=== PATIENT | male | born 1965 | race Caucasian/White ===

== ENCOUNTER 2023-05-28 12:10 | Inpatient (IN) | payer BC, SELFPAY ==
[2023-05-28] VITALS (28 sets, daily range): BP systolic 86–195; BP diastolic 39–150; BMI 30.1
[2023-05-28 09:58] LABS: Glucose - Point of Care 118 mg/dl (70-99)
--- NOTE | 2023-05-28 09:58 | ED.GENMED ---
History of Present Illness
General
Chief Complaint: CODE
Source: ambulance crew
Exam Limitations: clinical condition
Time Seen by Provider: 05/28/23 09:56
History of Present Illness
History of Present Illness:
See MDM
Past History
Past History
ED Past Medical History: Other (unknown)
ED Past Surgical History: Other (unknown)
Social History
Tobacco: Other (unknown)
Alcohol: Other (unknown)
Phy Exam
Physical Exam
Physical Exam:
See MDM
Course
Orders/Labs/Results
Orders:
Orders
05/28/23 09:57
Electrocardiogram (*1) Urgent
Reason for Study: Shortness of Breath
CT Head W/o Iv Contrast Urgent
Comment:
Reason For Exam: altered, intubated
EKG- Treatment ONCE
CR Chest Portable - 1 View Urgent
Comment:
Reason For Exam: Resppiratory arrest, intubated
Reason Study Needs to be Portable: Patient Unstable
05/28/23 10:03
Ventilator Initial Settings [RESP] Urgent
Tidal Volume: 500
Rate: 16
FIO2: 100
PEEP: 5
05/28/23 10:04
Fentanyl, Urine Urgent
Lactic Acid Q4H
Comment: CANCEL 2nd LACTIC ACID IF 1st LACTIC ACID IS LESS THAN 2
PTT Urgent
Prothrombin Time Urgent
Troponin I Urgent
Urine Drug Abuse Screen Urgent
Date Specimen was Collected: 05/28/23
Time Specimen was Collected: 10:02
Blood Culture Q30M
TG Source: Blood/Venous
Specimen Description:
Ventilator Initial Settings [RESP] Stat
Tidal Volume: 500
Rate: 16
FIO2: 100
PEEP: 5
05/28/23 10:08
Dave [Dave Placement- Treatment] ONCE
Reason for insertion: Acute Retention
05/28/23 10:22
Add On- LAB Urgent
Tests Added?: acetaminophen level
05/28/23 10:30
Blood Culture Q30M
TG Source: Blood/Venous
Specimen Description:
05/28/23 10:33
ABG [Arterial Blood Gas] Urgent
%Oxygen/Room Air: 100%
05/28/23 10:38
NORepinephrine 4 MG/250 ML [Levophed] 4 mg in 250 ml IV NOW
Initial dose in mcg/min, then titrate:: 2
Titrate to keep:: MAP > 65 mmHg
Titrate by mcg/min:: 1-2 mcg/min
Frequency of titrations (minutes):: 5
Maximum dose in ICU in mcg/min:: 30
Maximum dose in IMU in mcg/min:: 8
Maximum dose in IVU in mcg/min:: 4
Begin to taper infusion when:: Remained at goal for 4hrs
Taper by mcg/min:: 1-2 mcg/min
Frequency of taper (minutes) if patient maintains goal:: 30
Taper to off?: Yes
If infusion off & no longer maintaining goal:: Contact Provider
05/28/23 10:39
NORepinephrine 4 MG/250 ML [Levophed] 4 mg in 250 ml .ROUTE .STK-MED
05/28/23 10:41
Urinalysis Reflex To Culture Urgent
Date Specimen was Collected: 05/28/23
Time Specimen was Collected: 10:31
Comment: USE THIS SPECIMEN FOR UA AND CULTURE
05/28/23 10:43
Acetaminophen Urgent
Comment: ADD ON
Complete Blood Count/With Diff Urgent
Comment: REDRAW WRONG TUBE COLLECTED
Comprehensive Metabolic Panel Urgent
Comment: REDRAW HEMOLYZED
Salicylate Routine
05/28/23 11:00
NORepinephrine 4 MG/250 ML [Levophed] 4 mg in 250 ml IV PER PROTOCOL
05/28/23 11:38
Cefepime HCl [Maxipime] 2,000 mg IV NOW STA
Vancomycin [Vancocin] 2,000 mg 0.9% Sodium Chloride 500 ml [Nss] 500 ml IV NOW
05/28/23 14:00
Lactic Acid Q4H
Comment: CANCEL 2nd LACTIC ACID IF 1st LACTIC ACID IS LESS THAN 2
Abnormal Lab Results
05/28/23 05/28/23 05/28/23
09:57 10:04 10:33
PT 21.5 H Sec
(11.4-14.6)
pH 7.07 L*
(7.35-7.45)
pCO2 66 H mmHg
(35-48)
pO2 56 L* mmHg
(83-108)
HCO3 19.1 L mmol/L
(21-28)
ABG O2 Sat (Measured) 86.6 L %
(94-98)
Lactic Acid 4.8 H* mmol/L
(0.7-2.0)
Troponin I 1.980 H* ng/ml
Ur Amphetamines Screen Positive H
(Negative)
U Benzodiazepines Scrn Positive H
(Negative)
U Marijuana (THC) Screen Positive H
(Negative)
POC Glucose 118 H mg/dl
(70-99)
Vital Signs
Initial and Last Documented VS:
Initial Vital Signs
Pulse Pulse Ox
69 98
05/28/23 09:55 05/28/23 09:55
Last Documented Vital Signs
Temp Pulse Resp BP Pulse Ox
94.5 F L 70 33 122/80 93
05/28/23 11:10 05/28/23 11:27 05/28/23 11:27 05/28/23 11:27 05/28/23 11:27
MDM/Problems Addressed
Differential Diagnosis Includes:
HPI and MDM Narrative:
57-year-old male presenting as a prearrival respiratory distress. Patient was found in his car unresponsive by bystanders. Police arrived and administered Narcan with no resolution. EMS arrived and patient required intubation. They provided
ketamine before intubation. EMS indicating patient appears hypothermic. His distal extremities are cold and mottled. It is not certain how long he has been in the car. They found an empty bottle of Xanax and a half empty bottle of Ambien. EMS
provided dextrose for hypoglycemia and placed IV and started IV fluids
On arrival, patient met by myself, nursing staff and respiratory therapy. Patient was placed on the ventilator. Patient has intermittent agonal breathing
Physical exam
General: Toxic appearing, intermittently taking breaths. Not following commands. Eyes remain open
HEENT: Not protecting airway. Pupils 3 mm bilaterally and minimally responsive
Neck: appears supple
CV: Distal extremities show signs of mottling. Decreased distal pulses throughout.
Resp: Lungs clear to bagging
Abd: Non-distended
Extremities: Distal extremity is cold mottled. No obvious deformities
Neuro: GCS 4
Psych: Flat affect
Skin: Cold
Problems Addressed including Acute and Chronic Conditions affecting care:
1. Altered mental status
Acuity: acute
Prognosis: unstable
Details: concerning this could be possible suicide attempt by drug overdose. Will continue on the monitor
2. Respiratory distress
Acuity: acute
Prognosis: unstable
Details: Patient intubated. Patient placed on ventilator. Will obtain ABG
3. Possible drug overdose
Acuity: acute
Prognosis: unstable
Details: ER pharmacy did call patient's pharmacy and confirmed that patient is on Xanax, Ambien, tramadol, losartan, and amphetamines. Patient already received Narcan x 2. Will continue symptomatic care
4. Pneumonia
Acuity: acute
Prognosis: unstable
Details: Chest x-ray concerning for left-sided pneumonia. Patient has penicillin allergy. Will start vancomycin and cefepime
5. [ ]
Acuity:
Prognosis:
Details:
Updates
10:15 AM no obvious intracranial hemorrhage on CT
10:35 AM after 2 L of IV fluids, patient remains hypotensive. Will start Levophed
Differential Diagnosis (but not limited to): Intracranial hemorrhage, purposeful drug overdose, stroke
Testing considered: CT neck but no evidence of trauma
Drug therapy (if applicable): OTC meds, please see d/c instruction regarding Rx drugs
Amount and/or Complexity of Data Reviewed
Clinical info obtained from: EMS
External data reviewed: N/A
Labs I independently reviewed (but not limited to): Elevated lactic acid
Radiology: The CT scan was personally and independently reviewed. In addition, official CT report reviewed.
X-ray independently reviewed: Left-sided pneumonia
Pulse Ox: hypoxic
EKG independently reviewed: Sinus rhythm, normal axis, no STEMI
Family Engagement Specialist: Sinus rhythm
Critical Care: The high probability of a clinically significant, sudden or life threatening deterioration of the cardiopulmonary system(s) required my full and direct attention, intervention and personal management. The aggregate critical care time
was 53 minutes. This time is in addition to time spent performing reported procedures but includes the following:
[x] Data Review and interpretation
[x] Patient assessment and monitoring of vital signs
[x] Documentation
[x] Medication orders and management
Risk of Complication:
Social Determinants of health: Good social support
Discussed with other providers: N/A
Escalation of Care includes Admit/Obs: After being observed in the Emergency Department, pt stable for discharge.
Occasional wrong word or 'sound a like' substitutions may have occurred due to the inherent limitations of voice recognition software. Read the chart carefully and recognize, using context, where substitutions have occurred.
*Critical Care Note
Total Time (30-74mins, 75-104mins- exclusive of procedures): 53 min
ED Attending Note
-
Portions of this chart may have been created with voice recognition software.� Occasional wrong word or��sound alike� substitutions may have occurred due to the inherent limitations of voice recognition software.
Discharge Plan
Departure
Patient Disposition: Admit
Date of Disposition: 05/28/23
Time of Disposition: 10:21
Admit to: ICU
Presentation/result/management discussed w/ accepting MD/DO: Hospitalist
Discharge Problem:
Acute respiratory distress, Hypothermia, Hypoxia, Overdose
Prescriptions:
No Action
alprazolam 1 mg Tablet
1 mg PO TID
losartan-hydrochlorothiazide 100-25 mg Tablet
1 tab PO DAILY
zolpidem 12.5 mg Tablet,Ext Release Multiphase
12.5 mg PO HS
tramadol 50 mg Tablet
50 mg PO Q4H PRN (Reason: pain)
amphetamine sulfate 20 mg Tablet,Disintegrating
20 mg PO DAILY
Discharge Date and Time
Print Language: SAMOAN
[2023-05-28 10:31] LABS: INR 1.89; PT 21.5 Sec (11.4-14.6)
[2023-05-28 10:32] LABS: APTT 29.3 Sec (23.4-35.0)
[2023-05-28 10:35] LABS: Lactic Acid 4.8 mmol/L (0.7-2.0)
[2023-05-28 10:45] LABS: Amphetamines Positive (Negative); Barbiturates Negative (Negative); Benzodiazepines Positive (Negative); Buprenorphine Negative (Negative); Cocaine Negative (Negative); Marijuana Positive (Negative); Methadone Negative (Negative); Methamphetamines Negative (Negative); Opiates Negative (Negative); Phencyclidine Negative (Negative); Tricyclic Antidepressants Negative (Negative)
[2023-05-28 10:47] LABS: B.E. -12.4 mmol/L; HCO3 19.1 mmol/L (21-28); O2 Saturation % 86.6 % (94-98); PCO2 66 mmHg (35-48)
[2023-05-28 10:55] LABS: pH 7.07 (7.35-7.45)
[2023-05-28 10:56] LABS: PO2 56 mmHg (83-108)
[2023-05-28 11:03] LABS: Urine Albumin Negative (Neg - Trace); Urine Bilirubin Negative (Negative); Urine Character Very Cloudy (Clear); Urine Color Yellow; Urine Glucose Negative (Negative); Urine Ketone Negative (Negative); Urine Leukocyte Negative (Negative); Urine Nitrite Negative (Negative); Urine Occult Blood Negative (Negative); Urine Urobilinogen Negative (Neg - 1+)
[2023-05-28 11:03] LABS: Fentanyl, Urine Negative (Negative)
--- NOTE | 2023-05-28 11:24 | HPS.HSE ---
Family Physician
-
Family Physician: NOT KNOW UNKNOWN - PT DOES
Chief Complaint
-
Found unresponsive
History of Present Illness
Patient is 57 years old male who was found by bystander unresponsive in the car.
On ambulance team arrival patient remained unresponsive. Two empty bottle of Xanax and a half empty bottle of Ambien found next to the patient.
No response to Narcan reported
Required intubation with ketamine on the field.
On arrival to the emergency room patient initially hypothermic and hypotensive. Later hypotensive with SBP in 80s after around 2 L of isotonic solution infused.
Remains on assist control ventilation with spontaneous breathing
Unresponsive to painful stimuli. Pupils sluggish at 3 mm bilaterally..
Medical History
Past Medical History
Past Medical History: Reports Other (Unable to obtain due to patient condition)
Past Surgical History: Reports Other (Unable to obtain due to patient condition)
Social History
Unable to obtain full social history at this time due to: Patient Intubation
Family History
Family History: Other (Unable to obtain due to patient condition)
Allergies / Home Medications
Allergies reflects when Allergies were last updated in [facility].
Home Medications with original date entered in [facility]
Allergy/Medication List:
Not available, pending information from the pharmacy.
Review of Systems
-
Unable to obtain full review of systems at this time due to: Patient Intubation
Physical Exam
Vital Signs
Vital Signs
Temp Pulse Resp BP Pulse Ox
94.5 F L 73 34 106/77 91
05/28/23 11:10 05/28/23 11:05 05/28/23 11:05 05/28/23 11:05 05/28/23 11:05
Physical Exam
General: Well Developed, Well Nourished and No Apparent Distress
HEENT: NormoCephalic, Moist mucous membranes, Atraumatic and Other (ET tube in place with clear secretions)
Respiratory: Rales and Rhonchi; No Wheezes
Cardiac: S1/S2 and Regular Rhythm; No Murmur or Rub
GI: Soft, Non Tender, Non Distended and Normal Bowel Sounds; No Organomegaly
Rectal: Deferred by Provider
Genito-urinary: Dave
Musculoskeletal: No Clubbing, No Cyanosis and No Edema
Skin: No Rash
Neuro: Other (Unresponsive, pupils sluggish at 3 mm bilaterally.)
Laboratory Results
-
Laboratory Results
PT 21.5 Sec (11.4-14.6) H 05/28/23 10:04
INR 1.89 05/28/23 10:04
APTT 29.3 Sec (23.4-35.0) 05/28/23 10:04
pH 7.07 (7.35-7.45) L* 05/28/23 10:33
pCO2 66 mmHg (35-48) H 05/28/23 10:33
pO2 56 mmHg (83-108) L* 05/28/23 10:33
HCO3 19.1 mmol/L (21-28) L 05/28/23 10:33
Lactic Acid 4.8 mmol/L (0.7-2.0) H* 05/28/23 10:04
Total Bilirubin Cancelled 05/28/23 10:04
AST Cancelled 05/28/23 10:04
ALT Cancelled 05/28/23 10:04
Alkaline Phosphatase Cancelled 05/28/23 10:04
Troponin I 1.980 ng/ml H* 05/28/23 10:04
Data Reviewed
-
Diagnostic Radiology: Image Personally Visualized and interpreted and Report Reviewed by me
CT Scan: Report Reviewed by me
Lab Data: Labs Reviewed by me
Impression/Plan
-
IMPRESSION:
Toxic metabolic encephalopathy secondary to overdose.
Ventilatory dependent respiratory failure
-Intubated on the field on 4/0
Concern for anoxic encephalopathy
Intentional overdose suspected benzodiazepines.
Severe shock with hypotension. Multifactorial secondary to hypovolemia and sepsis.
Type II [place] secondary to demand ischemia
Acute kidney injury
Hypothermia
Respiratory acidosis.
Lactic acidosis.
Aspiration pneumonia with bilateral infiltrates
Sepsis secondary to aspiration pneumonia
Suspected benzodiazepine abuse/dependence
PLAN:
Critically ill.
Admit to intensive care unit.
Toxic metabolic encephalopathy secondary to overdose.
Urine drug screen positive for benzodiazepines, amphetamines, marijuana. Serum Tylenol and salicylate level undetectable.
Unknown time of exposure.
On arrival to emergency room unresponsive while off any sedative medications after given ketamine for intubation in the field.
CT scan of the head with no evidence of cerebral edema on presentation.
Continue close neurologic monitoring.
May required additional sedation as well on the vent and being stabilized in terms of respiratory and hemodynamic status.
Serial neurologic evaluation
Follow-up brain imaging.
Ventilatory dependent respiratory failure secondary to overdose.
ABG consistent with respiratory acidosis with limited metabolic compensation
Continue assist-control ventilation
As needed sedation as per pen tester.
Follow-up ABG
Severe shock multifactorial due to hypovolemia, sedatives, suspect sepsis with aspiration pneumonia.
Received IV bolus of isotonic solution and remains hypotensive.
Start Levophed with titration to MAP 55-60.
Acute kidney injury.
Metabolic/lactic acidosis.
Unknown baseline renal function.
Dave catheter in place.
Monitor urine output and electrolytes.
Aspiration pneumonia
Chest x-ray with bilateral left greater than right infiltrates.
Blood cultures pending.
Broad-spectrum antibiotics: Vancomycin/cefepime pending sputum and blood cultures.
Adjust dose according to renal function
Type II [place] secondary to demand ischemia in the settings of profound hypotension.
Treat hypotension
Trend troponin
Consider echocardiogram.
Unknown psychiatric history, although given toxic drug screen suspect multisubstance abuse
DVT prophylaxis/heparin
Full code
Total Critical Care Time__60__ minutes. I was immediately available to the patient and staff. I personally examined, reviewed labs, diagnostic images/reports, interpretations, treatment plans, discussed patient care with other providers and
family or caregivers (if patient is unable to make decisions), entered orders as appropriate and documented the medical record.
[2023-05-28] MEDS: MAXIPIME 2000 MG IV (12:04)
[2023-05-28] MEDS: SUBLIMAZE 50 MCG IV ×3 (12:44→15:07)
[2023-05-28 12:45] LABS: Hematocrit 54.2 % (39.0-52.0); Hemoglobin 17.6 g/dL (13.0-18.0); Mean Corp Hgb Conc. 32.5 g/dL (33.0-37.0); Mean Corpuscular Hgb 33.1 pg (27.0-31.0); Mean Corpuscular Volume 101.9 fL (80.0-94.0); Mean Platelet Volume 11.2 fL (7.4-10.4); Nucleated Red Blood Cells % 0.2 % (-); Platelet Count 143 10^3/uL (130-400); Red Blood Cell Count 5.32 10^6/uL (4.70-6.10); Red Cell Dist. Width 12.8 % (11.5-14.5); White Blood Cell Count 8.7 10^3/uL (4.8-10.8)
[2023-05-28] MEDS: NSS 1000 IV ×2 (12:49→21:07)
[2023-05-28 12:58] LABS: Lactic Acid 3.9 mmol/L (0.7-2.0)
[2023-05-28 13:02] LABS: INR 1.86; PT 21.3 Sec (11.4-14.6)
[2023-05-28 13:06] LABS: Acetaminophen < 10 ug/ml (10-30); Albumin 3.7 g/dl (3.5-5.0); Alkaline Phosphatase 51 U/L (38-126); Blood Urea Nitrogen 35 mg/dl (9-20); Calcium 7.9 mg/dl (8.4-10.2); Carbon Dioxide 20 mmol/L (22-30); Chloride 109 mmol/L (98-107); Estimated Creatinine Clearance 37 ml/min; Glucose 119 mg/dl (70-99); Salicylate < 1.0 mg/dl (2.0-20.0); Sodium 139 mmol/L (135-145); Total Bilirubin 0.9 mg/dl (0.2-1.3); Total Protein 6.2 g/dl (6.3-8.2); eGFR 25.52
[2023-05-28] MEDS: VANCOCIN 540 MG IV (13:18)
--- NOTE | 2023-05-28 13:40 | PTCARENOTE ---
pt received from er- unresponsive- ett to vent- pt with noted posturing- Dr. Menon aware. #7.5 ett 25@lip- on 100% fio2, peep 5, rate 16 breathing in the 30s, tv 500. oral care provided. goodrich draining cloudy pink tinged urine. nsr with pvcs on
monitor. bp stable. pt with noted left elbow blister and right hip hematoma- soft to touch. pt with good pedal and radial pulses. mottled lower extremities- core temp 94.6- on leann hugger as per order. ivf started as per order. all safety
precautions in place. left ngt inserted- cxr ordered. auscultated and aspirated for placement as well. left pupil >right- no further orders per dr. beavers
--- NOTE | 2023-05-28 13:40 | CON.INTV ---
Consultation
Consultation Request
Date/Time Consultation Requested: 05/28/2023
Date/Time Consultation Performed: 05/28/2023
Requesting Provider: Dr. Reed
Performing Provider: Dr. Anjel Hammond
Reason for Consultation: Acute hypercapnic respiratory failure, drug overdose
Medical History
-
History of Present Illness:
57-year-old man who presented apparently with respiratory distress. Apparently he was found in his car by bystanders unresponsive. Patient was given Narcan on the scene without response. EMS intubated the patient on the field.
Ketamine was provided prior intubation.
Patient was hypothermic, hypotensive.
He was cold and mottled. No history, uncertain time of being in the car unresponsive. Bottles of Xanax and Ambien were found with him.
Upon arrival to the emergency room patient was tachypneic, was having some intermittent agonal breathing's, he was placed on the ventilator.
Chest x-ray demonstrated left lower lobe/upper lobe infiltrate.
Initial ABG with acute hypercapnic respiratory failure.
There is acute kidney injury with significantly abnormal liver function testing and positive troponins.
Past Medical History
Past Medical History: Other (Unavailable)
Social History
Tobacco: Other
Family History
Family History: Unable to Obtain
Allergies / Home Medications
Allergies
Allergy/AdvReac Type Severity Reaction Status Date / Time
penicillin G Allergy rash, hives Verified 05/28/23 09:59
Home Medications
�Medication �Instructions �Recorded �Confirmed �Last Taken �Type
alprazolam 1 mg tablet 1 mg PO TID 05/28/23 Unknown History
amphetamine sulfate 20 mg 20 mg PO DAILY 05/28/23 Unknown History
disintegrating tablet
losartan 100 1 tab PO DAILY 05/28/23 Unknown History
mg-hydrochlorothiazide 25 mg tablet
tramadol 50 mg tablet 50 mg PO Q4H PRN pain 05/28/23 Unknown History
zolpidem 12.5 mg tablet,extended 12.5 mg PO HS insomnia 05/28/23 Unknown History
release,multiphase
Review of Systems
-
Unable to Obtain full review of systems at this time due to: Patient Intubation
Vitals / Labs / Diagnostic Testing
Vital Signs
Temp Pulse Resp BP Pulse Ox
94.6 F L 72 32 125/94 90
05/28/23 13:00 05/28/23 12:45 05/28/23 12:45 05/28/23 12:45 05/28/23 13:02
Lab Data
05/28/23 12:35
05/28/23 12:35
Laboratory Results
05/28/23 05/28/23 05/28/23
10:04 10:33 12:39
PT 21.5 H 21.3 H
INR 1.89 1.86
APTT 29.3 31.0
pH 7.07 L*
pCO2 66 H
pO2 56 L*
HCO3 19.1 L
O2 Delivery Level
Diagnostic Testing:
Physical Exam
-
HEENT: Normocephalic
Cardiovascular: S1/S2 and Regular Rhythm
Respiratory: Clear and Non-Labored Respirations
GI: Soft and Non Distended
Neurology: Other (Unresponsive, pupils are equal, has a respiratory effort, tachypneic. Occasional moving lower extremities.)
Skin: Warm
General: Respiratory Distress
Assessment
-
Acute hypercapnic respiratory failure recurrent intubation on the field
ABG 7.0
Toxic metabolic encephalopathy: Suspected intentional drug overdose: Xanax/Ambien bottle found
Positive amphetamines/benzos/marijuana
Negative Tylenol and narcotics. Negative cocaine.
Cannot rule out ischemic injury: CT head negative reviewed
Possible aspiration pneumonia
Chest x-ray: Showed left sided infiltrate, reviewed
Non anion gap metabolic acidosis-with increased lactic acid
Lactic acid on admission 4.8
Increased troponin: Non-PA likely demand ischemia.
Shock: Hypovolemic/possibly septic given aspiration pneumonitis pneumonia
Abnormal LFTs probably shock liver-rule out rhabdo
Acute kidney injury possibly ATN
Assessment and plan:
Patient is critically ill, intubated on mechanical ventilation per
Does have respiratory effort, equal to pupils
No gag reflex.
Not following commands
Appears uncomfortable on mechanical ventilation
-
Cannot rule out anoxic brain injury
Current CT is negative
Will continue to minimize sedation as able
Continue supportive care
Avoid hypotension
Will consider repeating CT head tomorrow
Obtain EEG
Check amonia
-
Aspiration pneumonia suspect : Agree with broad-spectrum antibiotics
-
Mechanical ventilation settings reviewed: Continue with current settings
Will decrease FiO2 to maintain pulse ox above 90%
Repeat ABG and adjust as necessary based on acid-base status
-
Shock: norepinephrine to maintain mean arterial blood pressure above 65 mmHg.
Trend lactic acid
Follow renal function
-
Abnormal LFTs: Possibly shock liver
Obtain total CK to rule out rhabdomyolysis
-
Acute kidney injury possibly ATN
IV fluids with normal saline
Repeat labs later
Monitor electrolytes
-
Head of the bed elevation
NG tube placement
-
Increase troponin-possible non-PA.
EKG with sinus rhythm with sinus arrhythmia. No ST-T wave abnormalities
Obtain echocardiogram
Trend troponins
-
DVT prophylaxis with heparin
Protonix for GI prophylaxis
-
Critical care statement: A total of 42 minutes of critical care time was provided for this patient today. This includes management of unstable vital signs, evaluation of the patient at bedside, reviewing the patient's pertinent medical records
including ventilator settings, arterial blood gases, radiographs, microbiology, laboratory evaluations and discussion with primary team, critical care nursing, and respiratory therapy.
--- NOTE | 2023-05-28 13:41 | PTCARENOTE ---
Addendum entered by Melissa Burrell RN 05/28/23 14:52:
left pupil 3, right 2- sluggish
Original Note:
pt received from er- unresponsive- ett to vent- pt with noted posturing- Dr. Menon aware. #7.5 ett 25@lip- on 100% fio2, peep 5, rate 16 breathing in the 30s, tv 500. oral care provided. goodrich draining cloudy pink tinged urine. nsr with pvcs on
monitor. bp stable. pt with noted left elbow blister and right hip hematoma- soft to touch. pt with good pedal and radial pulses. mottled lower extremities- core temp 94.6- on leann hugger as per order. ivf started as per order. all safety
precautions in place. left ngt inserted- cxr ordered. auscultated and aspirated for placement as well.
[2023-05-28 13:45] LABS: Absolute Neutrophils -Man Diff 6.8 10^3/uL (1.4-6.5); Band Neutrophils 17 % (0-3); Segmented Neutrophils 62 % (42-75)
[2023-05-28 13:46] LABS: Lymphocytes 14 % (20-51); Metamyelocytes 3 % (-); Monocytes 3 % (2-9); Myelocytes 1 % (-); Normal RBC Morphology No; Platelets Checked YES
[2023-05-28 13:47] LABS: Total Cells Counted 100; Toxic Granulation Slight
[2023-05-28 13:53] LABS: ALT (SGPT) 5855 U/L (0-50); AST (SGOT) > 7500 U/L (17-59)
--- NOTE | 2023-05-28 14:10 | PHA.VAN.IN ---
Assessment
- Assessment
Renal Function: Unknown baseline (JESENIA)
Concomitant Antimicrobials: cefepime
AUC Dosing Plan
- Dosing Variables
Dosing Weight (kg): 106
- Empiric Dosing
Initial / Loading Dose: 2000 mg - 05/28/23 ~1200
Maintenance Regimen: dose by random level due to unknown renal function and SCR 2.8
Plan
- Plan
Maintenance Regimen: dose by random level
Monitoring: random 05/28 06
Pharmacokinetics Vancomycin I
- -
Patient Age: 57
Patient Sex: Male
Vancomycin Day #: 1
Indication: Pulmonary/Respiratory
Requesting Provider: Itzel
Height / Weight:
Height 6 ft
Actual Weight 106.2 kg
Pertinent Past Medical History: BMI ~32; no med hx available; pt found unresponsive
- Vital Signs / Lab Results
Temp Pulse Resp BP Pulse Ox
96.1 F L 72 32 125/94 90
05/28/23 14:00 05/28/23 12:45 05/28/23 12:45 05/28/23 12:45 05/28/23 13:02
Lab Results - Hematology
05/28/23 05/28/23
10:04 12:35
WBC Cancelled 8.7
Band Neutrophils 17 H
Lab Results - Chemistry
05/28/23 05/28/23
10:04 12:35
BUN Cancelled 35 H
Creatinine Cancelled 2.8 H
Estimated Creat Clear Cancelled 37
Albumin Cancelled 3.7
05/28/23 05/28/23
10:04 12:34
Lactic Acid 4.8 H* 3.9 H
Lab Results - Urine
05/28/23
10:41
Urine Nitrite (Reflex) Negative
Leukocyte Esterase Rfl Negative
[2023-05-28 14:19] LABS: HCO3 17.5 mmol/L (21-28); O2 Saturation % 93.6 % (94-98); PCO2 47 mmHg (35-48); PO2 66 mmHg (83-108)
[2023-05-28 14:20] LABS: pH 7.18 (7.35-7.45)
[2023-05-28 14:38] LABS: TSH 0.91 uIU/ml (0.47-4.68)
--- NOTE | 2023-05-28 14:52 | PTCARENOTE ---
family at bedside- updated by rn and Dr. Menon- eeg being completed at bedside. labs sent as per order. Dr. Menon aware of elevated diastolic pressures.
--- NOTE | 2023-05-28 14:57 | W.PN.UPDATE ---
Update Note
Progress Note Update
His and children came to the bedside.
Apparently patient has history of depression, hypertension, insomnia. Prior history of suicidal attempt.
History of daily alcohol use.
Last time seen well was Wednesday night. Had a discussion with the family and left the house.
Apparently has been undergoing a lot of stress at home.
He has lost about 20 to 30 pounds with lifestyle modifications in the last year, health was improving overall.
There is history of medical marijuana use.
[2023-05-28 15:00] LABS: Creatine Phosphokinase 11575 U/L (55-170)
[2023-05-28] MEDS: SUBLIMAZE 100 IV (15:05)
[2023-05-28] MEDS: HEPARIN 5000 UNITS SC (15:05)
--- NOTE | 2023-05-28 15:15 | EEG.RPT ---
Electroencephalogram Report
Recording
Done with Video Recording: Yes
Patient Status: Inpatient
Recording Conditions: Asleep
Hyperventilation Performed: No
Photic Stimulation Performed: Yes
Hand Dominance: Unknown
Report
LESS THAN 1 HOUR EEG REPORT
METHODS:
A 21 channel digitized electroencephalogram (EEG) was performed at the bedside. The 10/20 international system of electrode placement was used with ECG and lateral/vertical eye movements recorded. Study lasted 26 minutes.
QUALITY OF STUDY:
Poor, very limited due to muscle artifact
ELECTROENCEPHALOGRAPHER IMPRESSION(S):
Background
Difficult to discern with muscle artifact, in the occipital leads with less muscle artifact there is delta and possibly theta rhythms seen
There were no significant asymmetries of background activity noted.
Sleep
Drowsiness present throughout study
Photic Stimulation
Failed to activate the record.
ECG
Normal sinus rhythm
Abnormalities
Within the limits of the study (significant muscle artifact) there are no epileptiform discharges or seizures seen.
LESS THAN 1 HOUR EEG INTERPRETATION:
Study significantly limited due to muscle artifact, appears to be moderately abnormal EEG for age due to diffuse bihemispheric slowing of background rhythms.
CLINICAL CORRELATION:
This study was suggestive of diffuse cortical dysfunction without focal abnormality. No seizures were recorded.
Clinical correlation is advised.
[2023-05-28] MEDS: ATIVAN 2 MG IV (15:36)
[2023-05-28] MEDS: NSS (PRESERVATIVE FREE) 1 ML IV (15:37)
[2023-05-28 15:38] LABS: Lactic Acid 3.7 mmol/L (0.7-2.0)
[2023-05-28 16:42] LABS: Ammonia < 9 umol/L (9-30)
[2023-05-28] MEDS: TYLENOL ORAL SOLUTION 650 MG TUBE (17:55)
--- NOTE | 2023-05-28 18:01 | PTCARENOTE ---
temp 101.2- tylenol given as per order. pt respiratory rate improved after ordered ativan. breathing at 22- rate on vent set to 16. vss. all safety precautins in place.
--- NOTE | 2023-05-28 20:25 | PTCARENOTE ---
Assumed care of patient at 1900. Patient unresponsive. Pupils equal and reactive. Sluggish, 2mm. +Corneal and gag reflexes. NSR on tele monitor. Trace edema in b/l LE. Palpable pulses. #7.5 ett @ 25 cm. Tube repositioned to the left. Rec'd patient
on A/C 16550/5/80%. Weaned to 70% by RT. SPO2 94%. Hypo BS. No BM. NGT in left nare to low intermittent suction. Dave in place. Scant output (about 0-5 cc's an hour). Fentanyl and IVFs infusing. VSS. Patient febrile. Tylenol administered by day
shift RN. Full assessment and care as charted on worklist.
[2023-05-28 21:32] LABS: Lactic Acid 4.1 mmol/L (0.7-2.0)
--- NOTE | 2023-05-28 22:06 | PTCARENOTE ---
Patient remains febrile s/p PO Tylenol and ice packs. Core temp 102.6. Order for IV Ofirmev and cooling blanket obtained. SUPERVISOR [employer] also notified of critical lab results. Lactic 4.1 and Troponin 9.140. EKG - NSR.
[2023-05-28] MEDS: OFIRMEV 100 IV (22:43)
--- NOTE | 2023-05-28 23:07 | W.PN.UPDATE ---
Addendum entered and electronically signed by MARLEN Wiseman 05/29/23 06:54:
Hyperkalemia with K level 6.1, new orders placed of insulin 10 units, dextrose 50% 25 grams, Lokelma, calcium 1 gram and will repeat bmp.
Original Note:
Update Note
Progress Note Update
Troponin is trending up from 1.980 admission time ---> 2.730 and now is 9.140. Currently on heparin sc q 8hrs. Cardiology consult placed. New recommendations received/fishing instructor stone engraver to give one dose of aspirin 324 mg, start heparin gtt with
bolus/ acs protocol.
[2023-05-28] MEDS: LOW STRENGTH ASPIRIN 324 MG PO (23:25)
[2023-05-28] MEDS: STERILE WATER FOR INJECTION 10 ML IV (23:25)
[2023-05-28] MEDS: MAXIPIME 1000 MG IV (23:25)
--- NOTE | 2023-05-28 23:26 | PTCARENOTE ---
Cardiology consulted. Aspirin and Heparin gtt ordered.
[2023-05-28 23:37] LABS: Hematocrit 49.6 % (39.0-52.0); Mean Corp Hgb Conc. 34.3 g/dL (33.0-37.0); Mean Corpuscular Hgb 32.9 pg (27.0-31.0); Mean Corpuscular Volume 95.9 fL (80.0-94.0); Mean Platelet Volume 11.6 fL (7.4-10.4); Platelet Count 134 10^3/uL (130-400); Red Blood Cell Count 5.17 10^6/uL (4.70-6.10); White Blood Cell Count 4.8 10^3/uL (4.8-10.8)
[2023-05-29] VITALS (24 sets, daily range): BP systolic 89–121; BP diastolic 64–83; BMI 30.7
--- NOTE | 2023-05-29 00:14 | PTCARENOTE ---
Systems reviewed. Patient remains unresponsive. NSR on tele with rate in the 80-90's. FiO2 down to 60%. POX 94-95%.
[2023-05-29 00:31] LABS: APTT 29.3 Sec (23.4-35.0)
[2023-05-29] MEDS: HEPARIN 25000 UNITS/250 ML IV (01:08)
[2023-05-29] MEDS: HEPARIN 4000 UNITS IV (01:08)
[2023-05-29 01:24] LABS: Lactic Acid 3.6 mmol/L (0.7-2.0)
--- NOTE | 2023-05-29 01:45 | PTCARENOTE ---
Core temp 100.0. Cooling blanket off.
[2023-05-29 03:23] LABS: Hematocrit 48.3 % (39.0-52.0); Hemoglobin 16.6 g/dL (13.0-18.0); Mean Corp Hgb Conc. 34.4 g/dL (33.0-37.0); Mean Corpuscular Hgb 33.2 pg (27.0-31.0); Mean Corpuscular Volume 96.6 fL (80.0-94.0); Mean Platelet Volume 11.4 fL (7.4-10.4); Platelet Count 129 10^3/uL (130-400); White Blood Cell Count 5.7 10^3/uL (4.8-10.8)
[2023-05-29 03:44] LABS: Albumin 3.1 g/dl (3.5-5.0); Alkaline Phosphatase 45 U/L (38-126); Blood Urea Nitrogen 49 mg/dl (9-20); Calcium 7.5 mg/dl (8.4-10.2); Carbon Dioxide 19 mmol/L (22-30); Chloride 108 mmol/L (98-107); Estimated Creatinine Clearance 24 ml/min; Glucose 93 mg/dl (70-99); Potassium 6.1 mmol/L (3.5-5.1); Sodium 137 mmol/L (135-145); Total Bilirubin 0.8 mg/dl (0.2-1.3); Total Protein 5.3 g/dl (6.3-8.2); Vancomycin Random 14.6 ug/ml; eGFR 16.63
--- NOTE | 2023-05-29 03:57 | PTCARENOTE ---
Critical labs reported to PATIENT FINANCIAL SERVICES COORDINATOR. Troponin 12.100. Heparin gtt infusing as ordered, in addition to bolus administered. K 6.1. Calcium gluconate, Dextrose, Insulin and Lokelma ordered.
[2023-05-29 03:58] LABS: Absolute Neutrophils -Man Diff 3.9 10^3/uL (1.4-6.5); Band Neutrophils 43 % (0-3); Segmented Neutrophils 26 % (42-75)
[2023-05-29 03:59] LABS: Lymphocytes 11 % (20-51); Metamyelocytes 8 % (-); Monocytes 11 % (2-9); Myelocytes 1 % (-); Platelets Checked Yes
[2023-05-29 04:00] LABS: Normal RBC Morphology Yes; Total Cells Counted 100
[2023-05-29] MEDS: NOVOLIN R 10 UNITS IV ×2 (04:13→17:27)
[2023-05-29 04:15] LABS: ALT (SGPT) 4796 U/L (0-50); AST (SGOT) > 7500 U/L (17-59)
[2023-05-29] MEDS: DEXTROSE 50% SYRINGE 25 GRAMS IV ×2 (04:16→17:30)
[2023-05-29] MEDS: LOKELMA 10 GRAM PO ×2 (04:16→17:30)
[2023-05-29] MEDS: NSS 1000 IV ×2 (04:16→20:39)
[2023-05-29 04:26] LABS: Glucose - Point of Care 91 mg/dl (70-99)
[2023-05-29 04:48] LABS: B.E. -10.6 mmol/L; HCO3 17.2 mmol/L (21-28); O2 Saturation % 91.4 % (94-98); PCO2 44 mmHg (35-48); PO2 65 mmHg (83-108)
--- NOTE | 2023-05-29 05:08 | PTCARENOTE ---
FiO2 increased back to 80% by RT based off ABG results.
[2023-05-29] MEDS: CALCIUM GLUCONATE 100 IV (05:16)
[2023-05-29] MEDS: MIRALAX 17 GRAMS TUBE (07:15)
[2023-05-29] MEDS: PROTONIX IV 40 MG IV (07:16)
[2023-05-29] MEDS: NSS (PRESERVATIVE FREE) 10 ML IV (07:16)
[2023-05-29 07:30] LABS: APTT 36.9 Sec (23.4-35.0)
[2023-05-29 07:32] LABS: Lactic Acid 3.4 mmol/L (0.7-2.0)
[2023-05-29 07:59] LABS: Blood Urea Nitrogen 49 mg/dl (9-20); Calcium 6.9 mg/dl (8.4-10.2); Carbon Dioxide 16 mmol/L (22-30); Chloride 111 mmol/L (98-107); Estimated Creatinine Clearance 28 ml/min; Glucose 94 mg/dl (70-99); Potassium 5.6 mmol/L (3.5-5.1); Sodium 138 mmol/L (135-145); eGFR 17.69
--- NOTE | 2023-05-29 08:00 | PTCARENOTE ---
pt received by previous rn- remains unresponsive on vent- see settings as charted. pupils 2 and sluggish. no gag noted. nsr on monitor. oral care and goodrich care provided. turned and repositioned. goodrich with minimal urine output. labs sent. fentanyl
gtt, ivf and heparin gtt continue as per order. ngt to low intermittent suction. all safety precautions in place.
--- NOTE | 2023-05-29 08:05 | PTCARENOTE ---
pt received by previous rn- remains unresponsive on vent- see settings as charted. pupils equal and reactive. no gag noted. nsr on monitor. oral care and goodrich care provided. turned and repositioned. goodrich with minimal urine output. labs sent.
fentanyl gtt, ivf and heparin gtt continue as per order. ngt to low intermittent suction. all safety precautions in place.
[2023-05-29 08:43] LABS: Creatine Phosphokinase 14030 U/L (55-170)
[2023-05-29] MEDS: SODIUM BICARBONATE 50 MEQ IV (08:45)
--- NOTE | 2023-05-29 08:54 | CON.CAR ---
Consultation
Consultation Request
Date/Time Consultation Requested: 05/28/23
Date/Time Consultation Performed: 05/29/23
Requesting Provider: Claudia
Performing Provider: Bre
Reason for Consultation: troponin elevation
Medical History
-
Chief Complaint: found down
History of Present Illness:
57-year-old man who was found down in his car, intubated in the field and brought in by EMS. Initially hypotensive and hypothermic in [facility] emergency department and he was admitted to the ICU for further management. It seems that he had
history of prior suicide attempts and it was suspected that this was likely a suicide attempt. Initial labs showing multi organ dysfunction including acute kidney injury and acute liver injury as well as electrolyte abnormalities and lactic acidosis.
Cardiology is consulted for elevated troponin. Initial troponin of 1.99 which trended up to 12.1 overnight and peaked trending back down to 10.3 this AM. Twelve-lead ECGs was during this hospitalization did not show any acute ischemic changes.
Transthoracic echocardiogram from 05/28/2023 showed normal LV function and no obvious segmental wall motion abnormalities.
He remains intubated and sedated in the medical ICU and therefore is unable to provide any history. He is hemodynamically stable, not requiring pressor support at this time.
History obtained by chart review
PMHx:
HTN
depression
prior suicide attempt
Past Medical History
Past Medical History: Other (as above)
Past Surgical History: Other (as above)
Social History
Alcohol: Daily
Family History
Family History: Unable to Obtain
Allergies / Home Medications
Allergy/AdvReac Type Severity Reaction Status Date / Time
penicillin G Allergy rash, hives Verified 05/28/23 09:59
�Medication �Instructions �Recorded �Confirmed �Type
Ketamine Hcl 05/28/23 History
alprazolam 1 mg tablet 1 mg PO TID 05/28/23 History
dextroamphetamine-amphetamine ER 10 mg PO DAILY 05/28/23 History
10 mg 24hr capsule,extend release
(Adderall XR)
dextroamphetamine-amphetamine ER 20 mg PO DAILY 05/28/23 History
20 mg 24hr capsule,extend release
(Adderall XR)
latanoprost (PF) 0.005 % eye drops 1 drp BOTH EYES HS 05/28/23 History
in a dropperette
losartan 100 1 tab PO DAILY 05/28/23 History
mg-hydrochlorothiazide 25 mg tablet
sildenafil 100 mg tablet 100 mg PO DAILY PRN ED 05/28/23 History
timolol 0.5 % eye drops 1 drp BOTH EYES BID 05/28/23 History
tramadol 50 mg tablet 50 mg PO Q4H PRN pain 05/28/23 History
zolpidem 12.5 mg tablet,extended 12.5 mg PO HS insomnia 05/28/23 History
release,multiphase
Review of Systems
-
Unable to obtain full review of systems at this time due to: Patient Intubation
Physical Exam
Vital Signs
Temp Pulse Resp BP Pulse Ox
98.7 F 79 16 106/69 94
05/29/23 07:31 05/29/23 08:00 05/29/23 08:00 05/29/23 08:00 05/29/23 08:00
Lab Results
05/29/23 03:13
05/29/23 07:13
Troponin I 10.300 ng/ml H* 05/29/23 07:13
Physical Exam
General: Well Developed
HEENT: Normocephalic
Respiratory: Clear and Other (intubated)
Cardiac: S1/S2
GI: Soft
Musculoskeletal: No Edema
Skin: Warm and Dry
Neuro: Sedated
Psych: Calm
Impression / Plan
-
Assessment:
Troponin elevation - Type 2 MO
Respiratory failure with intubation in the field
Toxic metabolic encephalopathy: Suspected intentional drug overdose: Xanax/Ambien bottle found
Positive amphetamines/benzos/marijuana
Shock
Non anion gap metabolic acidosis-with increased lactic acidosis
Shock liver- ischemic hepatopathy
JESENIA
TTE 05/28/23: LVEF 50 to 55%, no segmental wall motion abnormalities, Normal RV size and function
Plan:
-Presenting with shock and multiorgan failure following suspected drug overdose
-We are consulted for elevated troponin which peaked at 12 overnight
-In the absence of EKG changes and segmental wall motion abnormalities on echo suspect that this is type II MO, nonischemic myocardial injury
-Stop aspirin and heparin drip. Risk of anticoagulation and antiplatelets likely outweighs the benefit given thrombocytopenia and shock liver and low suspicion for ACS.
-If he has neurology recovery we can arrange for ischemic evaluation in the future such as outpatient stress testing
We will sign off, please recall as needed
Data Reviewed
-
EKG: Tracing Personally Visualized and interpreted
Medical Tests (Nuc Med, Echo etc): Report Reviewed by me
Labs: Labs Reviewed by me
[2023-05-29] MEDS: SODIUM BICARBONATE 1075 MEQ IV (09:13)
--- NOTE | 2023-05-29 10:25 | PTCARENOTE ---
fentanyl infusion off per Dr. Hammond, heparin gtt discontinued. pt given amp of bicarb and started on gtt. plan of care discussed with mds and family at bedside. assessment unchanged.
--- NOTE | 2023-05-29 11:01 | W.PN.HOSP.TC ---
Today's Communication/Plan
-
Vent support
Wean off sedation and monitor for neurologic recovery
Neurology consultation
CT scan of the head
IV antibiotics
IV fluids
Levophed
Assessment / Plan
Assessment / Plan
IMPRESSION:
Toxic metabolic encephalopathy secondary to overdose.
Ventilatory dependent respiratory failure
-Intubated on the field on
Concern for anoxic encephalopathy
Intentional overdose suspected benzodiazepines.
Severe shock with hypotension. Multifactorial secondary to hypovolemia and sepsis.
Nonischemic cardiac injury.
Shock liver
Acute kidney injury
Hypothermia
Respiratory acidosis.
Lactic acidosis.
Aspiration pneumonia with bilateral infiltrates
Sepsis secondary to aspiration pneumonia
Suspected benzodiazepine abuse/dependence
Conditions prior to admission:
Depression with prior history of suicidal attempt
Essential hypertension
Insomnia
Obesity with reported weight loss due to lifestyle modification
PLAN:
Critically ill.
Admitted to intensive care unit.
Toxic metabolic encephalopathy secondary to overdose.
Urine drug screen positive for benzodiazepines, amphetamines, marijuana. Serum Tylenol and salicylate level undetectable.
Unknown time of exposure.
On arrival to emergency room unresponsive while off any sedative medications after given ketamine for intubation in the field.
CT scan of the head with no evidence of cerebral edema on presentation.
Neurologic exam with weak cough, no corneal reflexes. Spontaneous respirations while on the vent
Continue close neurologic monitoring.
Wean off fentanyl and monitor for neurologic recovery
EEG nondiagnostic
Repeat CT scan of the head
Neurology consultation
Ventilatory dependent respiratory failure secondary to overdose.
ABG consistent with respiratory acidosis with limited metabolic compensation
Continue assist-control ventilation
As needed sedation as per portal architect.
Follow-up ABG
Severe shock multifactorial due to hypovolemia, sedatives, suspect sepsis with aspiration pneumonia.
Received IV bolus of isotonic solution and remains hypotensive.
Continue isotonic solution
Continue Levophed with titration to MAP 55-60.
Acute kidney injury.
Metabolic/lactic acidosis.
Unknown baseline renal function.
Dave catheter in place.
Monitor urine output and electrolytes.
Aspiration pneumonia
Chest x-ray with bilateral left greater than right infiltrates.
Blood cultures pending.
Broad-spectrum antibiotics: Vancomycin/cefepime pending sputum and blood cultures.
Adjust dose according to renal function
Nonischemic cardiac injury
Troponin peak at 12
Echocardiogram with preserved biventricular function and no evidence of regional wall motion abnormalities
ECG with no ischemic changes
Cardiology input appreciated
Unknown psychiatric history, although given toxic drug screen suspect multisubstance abuse
DVT prophylaxis/heparin
Full code
Total Critical Care Time__60__ minutes. I was immediately available to the patient and staff. I personally examined, reviewed labs, diagnostic images/reports, interpretations, treatment plans, discussed patient care with other providers and
family or caregivers (if patient is unable to make decisions), entered orders as appropriate and documented the medical record.
Anticipated Discharge: > 48 hours
Subjective/Interval History
-
Date of Service: May 29, 2023
Objective Data
-
Labs:
Laboratory Results
05/28/23 05/28/23 05/29/23
23:31 23:54 03:13
WBC 4.8 5.7
Hgb 17.0 16.6
Hct 49.6 48.3
Plt Count 134 129 L
APTT Cancelled 29.3
HCO3
Sodium 137
Potassium 6.1 H*
Chloride 108 H
Carbon Dioxide 19 L
BUN 49 H
Creatinine 4.0 H
Glucose 93
Calcium 7.5 L
Total Bilirubin 0.8
AST > 7500 H*
ALT 4796 H*
Alkaline Phosphatase 45
05/29/23 05/29/23 05/29/23
04:39 07:13 15:45
WBC
Hgb
Hct
Plt Count
APTT 36.9 H Cancelled
HCO3 17.2 L
Sodium 138
Potassium 5.6 H
Chloride 111 H
Carbon Dioxide 16 L
BUN 49 H
Creatinine 3.8 H
Glucose 94
Calcium 6.9 L*
Total Bilirubin
AST
ALT
Alkaline Phosphatase
Vital Signs:
Vital Signs
Temp Pulse Resp BP Pulse Ox
98.7 F 83 16 107/75 94
05/29/23 07:31 05/29/23 10:00 05/29/23 10:00 05/29/23 10:00 05/29/23 10:22
I&O
05/28/23 05/29/23 05/30/23
06:59 06:59 06:59
Intake Total 3765 / 4230 830 / 830
Output Total 391 / 393
Balance 3374 / 3837 803 / 803
Physical Exam
-
General: Well Developed and No Apparent Distress
HEENT: Normocephalic, Atraumatic and Moist Mucous Membranes
Respiratory: Clear to Auscultation
Cardiac: Regular Rhythm and S1/S2; Negative Murmur, Rub or Gallop
GI: Soft, Nontender, Nondistended and Normal Bowel Sounds; Negative Organomegaly
Rectal: Deferred by Provider
Musculoskeletal: No Clubbing, No Cyanosis and No Edema
Skin: Negative Rash
Neuro: Other (Noted with spontaneous respiration, with no spontaneous movements, no response to noxious stimuli. Negative cough, negative corneal. Pupils sluggish.)
--- NOTE | 2023-05-29 11:14 | PHA.VAN.FU ---
Vancomycin Assessment / Plan
- Assessment
Renal Function: SCR Increasing (2.8->4.0->3.8)
WBC's are: WNL
In the past 24 hrs, patient has been: Febrile (MAX TEMP 102.4 05/27 2300)
Concomitant Antimicrobials: cefepime
- Assessment - Therapeutic Drug Monitoring
Random Level: 14.5 ( ~13 h after initial 2 gm LD)
- Dosing Plan
Continue: continue dose by random level
Dosing by Level: Hold off on dosing today (pt has low urine output- will hold off on dosing today)
- Monitoring Plan
Random Level: 05/29 06
- Follow Up
Pharmacy will continue to follow.
Vancomycin Follow UP
- -
Patient Age: 57
Patient Sex: Male
Vancomycin Day #: 2
Indication: Pulmonary/Respiratory
Requesting Provider: Itzel
Height / Weight:
Height 6 ft 2 in
Actual Weight 108.3 kg
Pertinent Past Medical History: BMI ~32; no med hx available; pt found unresponsive
- Vital Signs / Lab Results
Temp Pulse Resp BP Pulse Ox
98.7 F 83 16 107/75 94
05/29/23 07:31 05/29/23 10:00 05/29/23 10:00 05/29/23 10:00 05/29/23 10:22
Lab Results - Hematology
05/28/23 05/28/23 05/28/23
10:04 12:35 23:31
WBC Cancelled 8.7 4.8
Band Neutrophils 17 H
05/29/23
03:13
WBC 5.7
Band Neutrophils 43 H D
Lab Results - Chemistry
05/28/23 05/28/23 05/29/23
10:04 12:35 03:13
BUN Cancelled 35 H 49 H
Creatinine Cancelled 2.8 H 4.0 H
Estimated Creat Clear Cancelled 37 24
Albumin Cancelled 3.7 3.1 L
05/29/23
07:13
BUN 49 H
Creatinine 3.8 H
Estimated Creat Clear 28
Albumin
05/28/23 05/28/23 05/28/23
10:04 12:34 12:39
Lactic Acid 4.8 H* 3.9 H Cancelled
05/28/23 05/28/23 05/29/23
15:21 21:12 01:05
Lactic Acid 3.7 H 4.1 H* 3.6 H
05/29/23
07:13
Lactic Acid 3.4 H
Lab Results - Urine
05/28/23
10:41
Urine Nitrite (Reflex) Negative
Leukocyte Esterase Rfl Negative
Microbiology Results
05/28/23 10:04 Blood Culture - Preliminary
Blood/Venous No Growth in 24 hours- Final report to follow
Therapeutic Drug Monitoring
Random Vancomycin 14.6 ug/ml 05/29/23 03:13
[2023-05-29] MEDS: MAXIPIME 1000 MG IV (12:03)
[2023-05-29] MEDS: STERILE WATER FOR INJECTION 10 ML IV (12:03)
--- NOTE | 2023-05-29 12:09 | W.PN.INTV ---
Today's Communication / Plan
Recommendations
Bicarbonate drip
Will adjust mechanical ventilation
Repeat BMP later
Continue antibiotics
Discontinue sedation
Follow LFTs
Repeat CT head
Neurology consultation
Assessment
-
57-year-old man with history of depression, daily alcohol use, prior suicidal attempt 5 years ago per family found unresponsive in his car. Required emergent intubation. CT head without abnormality. Multiorgan failure noted.
Acute hypercapnic respiratory failure recurrent intubation on the field
ABG 7.0
Toxic metabolic encephalopathy: Suspected intentional drug overdose: Xanax/Ambien bottle found
Positive amphetamines/benzos/marijuana
Negative Tylenol and narcotics. Negative cocaine.
Cannot rule out ischemic injury: CT head negative reviewed
Possible aspiration pneumonia
Chest x-ray: Showed left sided infiltrate, reviewed
Non anion gap metabolic acidosis-with increased lactic acid
Lactic acid on admission 4.8
Increased troponin: Non-ME likely demand ischemia.
Shock: Hypovolemic/possibly septic given aspiration pneumonitis pneumonia
Abnormal LFTs probably shock liver-rule out rhabdo
Acute kidney injury possibly ATN
Hyperkalemia
Assessment and plan:
Remains critically ill, intubated, unresponsive, no meaningful neurological recovery.
Multiorgan failure, acute kidney injury, liver ischemic injury, hypotensive.
-
Suspect significant anoxic brain injury
Does have respiratory effort, equal to pupils
Minimal gag reflex.
Not following commands
Does not withdraw to pain
EEG without seizure activity suggestive of diffuse cortical dysfunction without focal abnormality. 05/28/2023
-
CT is negative
Discontinue all sedation and observe. He was on fentanyl drip overnight due to increased work of breathing.
Continue supportive care
Avoid hypotension
Repeat CT head
Neurology consulted, case discussed with Dr. Reed
-
Aspiration pneumonia suspect : cont. broad-spectrum antibiotics
-
Mechanical ventilation settings reviewed: Continue with current settings
AC 550/16/5/70%
Will decrease FiO2 to maintain pulse ox above 90%
ABG 05/29/2023: 7.22/44/65
Metabolic and respiratory acidosis
Tidal volume was adjusted.
-
Start bicarbonate drip-at 100 cc an hour
1 amp of bicarbonate was given
Repeat labs later, ABG and BMP at 3pm.
-
Shock: norepinephrine to maintain mean arterial blood pressure above 65 mmHg.
Levophed currently off.
Lactic acid 3.4, suspect mainly type II due to liver dysfunction.
Creatinine has plateaued
Continue Dave urinary output
-
Abnormal LFTs: P likely due to ischemic injury
Rhabdomyolysis CK 14,000
Continue IV fluids
-
Acute kidney injury possibly ATN
Bicarbonate
Hyperkalemia noted, status post insulin and Lokelma.
Bicarbonate drip
Repeat later
Hopefully can move bowels
Unable to diurese
-
Head of the bed elevation
NG tube placement-keep n.p.o. for now.
-
Increase troponin-possible non-ME.
Briefly on heparin drip, discontinue after discussion with cardiology
Echocardiogram: Discussed no regional motion wall abnormalities. Preserved LVEF
If improved neurologically ischemic evaluation in the future
-
DVT prophylaxis with heparin subcu
Protonix for GI prophylaxis
-
Dr. Hammond updated family 05/28/2023: Apparently patient has history of depression. Prior suicidal attempt 5 years ago. Drinks alcohol daily. Recently had lost some weight with lifestyle modifications. There is a lot of stress at home. The last
time he was seen well was on Wednesday night.
-
Critical care statement: A total of 35minutes of critical care time was provided for this patient today. This includes management of unstable vital signs, evaluation of the patient at bedside, reviewing the patient's pertinent medical records
including ventilator settings, arterial blood gases, radiographs, microbiology, laboratory evaluations and discussion with primary team, critical care nursing, and respiratory therapy.
Subjective Dataa
Subjective Data
Date of Service:
Date of Service: May 29, 2023
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
Subjective:
Unresponsive, on mechanical ventilation.
No meaningful neurological recovery
Review of Systems
General: Unobtainable - Pat Unresp
Objective Data
Data Reviewed
Vital Signs / I&O / Oxygen:
Vital Signs
Temp Pulse Resp BP Pulse Ox
99.8 F 83 16 107/75 94
05/29/23 11:20 05/29/23 10:00 05/29/23 10:00 05/29/23 10:00 05/29/23 10:22
Intake and Output
05/28/23 05/29/23 05/30/23
06:59 06:59 06:59
Intake Total 3765 / 4230 830 / 830
Output Total 391 / 393 27 / 27
Balance 3374 / 3837 803 / 803
SaO2 [A/C] 96
SaO2 94
Physical Exam
General: Respiratory Distress (n) and Comfortable
HEENT: Normocephalic and Other (ET tube in place)
Cardiovascular: S1-S2 and Regular Rhythm
Respiratory: Clear and Non-Labored Respirations
GI: Soft and Non Distended
Neurology: Other (Unresponsive, on mechanical ventilation. Pupils are equal, small and sluggish. Minimal gag reflex. Has respiratory effort. No response to pain)
Skin: Warm
Labs/Micro/Reports
Lab Data
05/29/23 03:13
05/29/23 07:13
Laboratory Results
05/28/23 05/28/23 05/28/23
12:39 14:09 23:31
PT 21.3 H
INR 1.86
APTT 31.0 Cancelled
pH 7.18 L*
pCO2 47
pO2 66 L
HCO3 17.5 L
O2 Delivery Level
05/28/23 05/29/23 05/29/23
23:54 04:39 07:13
PT
INR
APTT 29.3 36.9 H
pH 7.20 L
pCO2 44
pO2 65 L
HCO3 17.2 L
O2 Delivery Level
05/29/23
15:45
PT
INR
APTT Cancelled
pH
pCO2
pO2
HCO3
O2 Delivery Level
Microbiology
05/28/23 10:04 Blood/Venous Blood Culture - Preliminary
No Growth in 24 hours- Final report to follow
--- NOTE | 2023-05-29 13:09 | CON.NEURO ---
Neuro Assessment/Plan
Assessment
IMPRESSIONS/RECOMMENDATIONS:
Abrupt change in mental status
Most likely secondary to toxic metabolic encephalopathy. The possibility of anoxic injury is suggested by the presence of changes on CT of the head involving the globus pallidus bilaterally
Prior EEG evaluation failed to suggest discontinuous cortical rhythms which improved the likelihood of a meaningful recovery.
Better prognostic ability 3 days after discontinuance of all sedation.
Plan
Continue supportive care
Avoid sedative medications at this time
Must consider initiation of levetiracetam due to myoclonic movements patient is demonstrating and if same do not spontaneously resolve by the a.m., will initiate this medication
Recheck EEG if patient does not have spontaneous improvement of mentation after 24 hours off of sedative medications
Consider thiamine
Will continue to follow patient. Thank you.
Consultation
Order
Date of Consultation: 05/29/23
Requesting Provider: Hospitalists
Reason for Consult: Unresponsiveness
Subjective/Objective
Subjective Data
Date of Service: May 29, 2023
Patient presented to this hospital's emergency department 1 day ago after being found down in his car. The patient was described as hypotensive and hypothermic then placed in the intensive care unit. Patient's medical history is entirely obtained
after review of the patient's medical records and discussion with professional medical care providers. The patient reportedly had a history of suicidal attempts previously. The patient was intubated at the time of discovery. At the time of
presentation, the patient's urine drug screen was abnormal for amphetamines, benzodiazepines and marijuana.
Objective Data
Vital Signs
Temp Pulse Resp BP Pulse Ox
37.7 C 83 16 107/75 94
05/29/23 11:20 05/29/23 10:00 05/29/23 10:00 05/29/23 10:00 05/29/23 10:22
Lab Results
05/29/23 03:13
PT 21.3 Sec (11.4-14.6) H 05/28/23 12:39
INR 1.86 05/28/23 12:39
APTT Cancelled 05/29/23 15:45
Sodium 138 mmol/L (135-145) 05/29/23 07:13
Potassium 5.6 mmol/L (3.5-5.1) H 05/29/23 07:13
BUN 49 mg/dl (9-20) H 05/29/23 07:13
Glucose 94 mg/dl (70-99) 05/29/23 07:13
Calcium 6.9 mg/dl (8.4-10.2) L* 05/29/23 07:13
Ur Buprenorphine Negative (Negative) 05/28/23 10:04
Patient Allergies
penicillin G Allergy (Verified 05/28/23 09:59)
rash, hives
Physical Exam
-
General: No Apparent Distress, Intubated and Appears Stated Age
Eyes: Round OU and [place] Conjunctivae; Negative Able to visualize OU
HEENT: Anicteric and Moist Mucous Membranes
Neck: Full Range of Motion
Respiratory: No Dyspnea
Cardiac: No JVD
GI: Non-distended
Skin: Unremarkable
Extremities: No Clubbing, No Cyanosis and No Edema
Psych: Unable to Assess
Extended Neurological Exam
Mood & Affect: Unable to Assess
Attention Span & Concentration: Unresponsive to Verbal Stimuli and Unresponsive to Physical Stimuli; Negative Awake, Alert or Interactive
Memory: Unable to Assess
Tremor: Hand Tremor Absent and Head Tremor Absent
Involuntary Movement: Other (Rhythmic once every 2-second low amplitude head turned to the left in myoclonic fashion)
Speech: Mute
Cranial Nerve II: Left Eye: Unable to Assess Visual Viramontes; Negative Pupillary Size Unremarkable ([place])
Cranial Nerve II: Right Eye: Unable to Assess Visual Viramontes; Negative Pupillary Size Unremarkable (Pinpoint)
Cranial Nerves III, IV, : Extraocular Movement: Absent Doll's Eyes
Cranial Nerve VII: Facial Symmetry: Normal Facial Symmetry
Cranial Nerve VIII: Hearing: Unable to Assess
Cranial Nerves IX, X: Palate Movement: Unable to Assess
Cranial Nerve XI: Shoulder Shrug: Unable to Assess
Cranial Nerve XII: Tongue Protusion: Unable to Assess
Muscle Strength, Overall: Negative Spontaneously Moves
Muscle Bulk & Tone: Bulk Unremarkable and Tone Unremarkable
Pronator Drift: Unable to Assess
Deep Tendon Reflexes: Absent Throughout
Cold Sensation: Unable to Assess
Vibration Sensation: Unable to Assess
Touch Sensation: Negative Withdrawal to Pain
Coordination: Unable to Assess
Babinski Sign: Absent Bilaterally
Gait & Station: Unable to Assess
Data Reviewed
-
CT Head: Report Reviewed (Round 9 mm symmetric low attenuation lesions in the GLOBUS PALLIDUS BILATERALLY consistent with ANOXIC-ISCHEMIC ENCEPHALOPATHY. Diagnostic possibilities are (1) an ACUTE TOXIC ENCEPHALOPATHY (drug abuse) or (2) carbon
monoxide poisoning.)
Labs: Report Reviewed
Reviewed with: Physician and Nurse
Old Records: Summarized
Medications
-
Active Medications
Generic Name Dose Route Start Last Admin
Trade Name Freq PRN Reason Stop Dose Admin
Acetaminophen 650 mg 05/28/23 16:42 05/28/23 17:55
Acetaminophen (Oral Solution) 650 Mg/20.3 Ml Cup TUBE 06/25/23 16:41 650 mg
Q6HPRN PRN Administration
Fever >101 F
Cefepime HCl 1,000 mg 05/29/23 00:00 05/29/23 12:03
Cefepime Hcl 1,000 Mg/11.3 Ml Vial IV 1,000 mg
Q12H MADDIE Administration
Fentanyl Citrate 50 mcg 05/28/23 13:00 05/28/23 15:07
Fentanyl (50 Mcg/Ml) 100 Mcg/2 Ml Ampul IV 06/11/23 12:59 50 mcg
[id number] PRN Administration
see protocol
Protocol
Norepinephrine Bitartrate 4 mg in 250 mls @ 0 mls/hr 05/28/23 11:00
Levophed IV
PER PROTOCOL MADDIE
Protocol
Per Protocol
Fentanyl Citrate 1,000 mcg in 100 mls @ 0 mls/hr 05/28/23 13:00 05/28/23 15:05
Sublimaze IV 100 mls
PER PROTOCOL MADDIE Administration
Protocol
Per Protocol
Sodium Chloride 1,000 mls @ 150 mls/hr 05/28/23 12:37 05/29/23 04:16
Nss IV 1,000 mls
.Q6H40M MADDIE Administration
Vancomycin HCl 1 each/ Device 0 mls @ 0 mls/hr 05/28/23 12:37
IV
PER PROTOCOL MADDIE
Protocol
As Directed
Sodium Bicarbonate 75 meq/ 1,075 mls @ 100 mls/hr 05/29/23 10:00 05/29/23 09:13
Dextrose IV 05/29/23 20:44 1,075 mls
.[id number] MADDIE Administration
Lorazepam 2 mg 05/28/23 14:58 05/28/23 15:36
Lorazepam 2 Mg/Ml Vial IV 06/25/23 14:57 2 mg
Q4HPRN PRN Administration
vent dyssynchrony
Pantoprazole Sodium 40 mg 05/29/23 08:00 05/29/23 07:16
Protonix 40 Mg Iv Push IV 06/26/23 07:59 40 mg
DAILY MADDIE Administration
Polyethylene Glycol 17 grams 05/29/23 08:00 05/29/23 07:15
Polyethylene Glycol Powder 17 Grams Packet TUBE 06/26/23 07:59 17 grams
DAILY MADDIE Administration
Sodium Chloride 0 flush 05/28/23 15:00
Sodium Chloride 0.9% (Flush) Syringe IV 06/25/23 14:59
PER PROTOCOL MADDIE
Sodium Chloride 1 ml 05/28/23 14:58 05/28/23 15:37
Nss (Pf) 10 Ml Vial For Ativan 2 Mg Dose IV 06/25/23 14:57 1 ml
Q4HPRN PRN Administration
IV LORAZEPAM DILUTION
Sodium Chloride 10 ml 05/29/23 08:00 05/29/23 07:16
Sodium Chloride 0.9% (Preservative Free) 10 Ml Vial IV 06/26/23 07:59 10 ml
DAILY MADDIE Administration
Sterile Water 10 ml 05/29/23 00:00 05/29/23 12:03
Sterile Water For Injection 10 Ml Vial IV 06/26/23 00:00 10 ml
Q12H MADDIE Administration
Home Medications
�Medication �Instructions �Recorded
Ketamine Hcl 05/28/23
alprazolam 1 mg tablet 1 mg PO TID 05/28/23
dextroamphetamine-amphetamine ER 10 mg PO DAILY 05/28/23
10 mg 24hr capsule,extend release
(Adderall XR)
dextroamphetamine-amphetamine ER 20 mg PO DAILY 05/28/23
20 mg 24hr capsule,extend release
(Adderall XR)
latanoprost (PF) 0.005 % eye drops 1 drp BOTH EYES HS Eye Condition 05/28/23
in a dropperette
losartan 100 1 tab PO DAILY Blood Pressure 05/28/23
mg-hydrochlorothiazide 25 mg tablet
sildenafil 100 mg tablet 100 mg PO DAILYPRN PRN ED 05/28/23
timolol 0.5 % eye drops 1 drp BOTH EYES BID 05/28/23
tramadol 50 mg tablet 50 mg PO Q4H PRN pain 05/28/23
zolpidem 12.5 mg tablet,extended 12.5 mg PO HS insomnia 05/28/23
release,multiphase
Past History
Past History
ED Past Medical History: HTN, Psychiatric (Major depression with suicidal attempts) and Other (Aspiration pneumonia, shock with hypotension nonischemic cardiac injury); Negative Renal failure (Acute renal insufficiency)
ED Past Surgical History: Other (unknown)
Social History
Tobacco: Other (unknown)
Alcohol: Other (unknown)
[2023-05-29 14:58] LABS: B.E. -7.8 mmol/L; HCO3 19.7 mmol/L (21-28); O2 Saturation % 98.1 % (94-98); O2 Therapy 40; PCO2 46 mmHg (35-48); PO2 104 mmHg (83-108); pH 7.24 (7.35-7.45)
[2023-05-29 15:48] LABS: Blood Urea Nitrogen 58 mg/dl (9-20); Calcium 7.1 mg/dl (8.4-10.2); Carbon Dioxide 18 mmol/L (22-30); Chloride 110 mmol/L (98-107); Estimated Creatinine Clearance 24 ml/min; Glucose 102 mg/dl (70-99); Potassium 5.6 mmol/L (3.5-5.1); Sodium 135 mmol/L (135-145); eGFR 14.44
--- NOTE | 2023-05-29 15:59 | PTCARENOTE ---
Dr. Doyle at bedside- pt with pinpoint pupils, still remains unresponsive, pt with myclonic ticks. breathing with vent at this time. labs discussed with Dr. Hammond. turned and repositioned. oral care provided. remains with no gag.
--- NOTE | 2023-05-29 16:12 | CHAP ---
Mr. Kulkarni was unresponsive. I spoke softly at his side, offering words of comfort and reassurance, and a prayer.
--- NOTE | 2023-05-29 17:05 | W.PN.UPDATE ---
Update Note
Progress Note Update
Hyperkalemia still persistent
Will give additional D50 with insulin
Additional dose of Lokelma
Will increase respiratory rate on mechanical ventilation as the patient continues to be acidotic-mixed respiratory and metabolic.
Repeat BMP at 9 PM.
[2023-05-29] MEDS: NSS IV (18:36)
[2023-05-29] MEDS: TYLENOL ORAL SOLUTION 650 MG TUBE (20:39)
[2023-05-29 20:53] LABS: Glucose - Point of Care 98 mg/dl (70-99)
--- NOTE | 2023-05-29 21:00 | PTCARENOTE ---
Rec'd care of patient at 1900. Patient unresponsive. NSR on tele monitor. VSS. Remains ventilated. A/C 24/550/5/40%. Pulse ox 95-97%. See worklist for full assessment and care.
[2023-05-29 21:31] LABS: Blood Urea Nitrogen 66 mg/dl (9-20); Calcium 7.4 mg/dl (8.4-10.2); Carbon Dioxide 18 mmol/L (22-30); Chloride 106 mmol/L (98-107); Estimated Creatinine Clearance 22 ml/min; Glucose 108 mg/dl (70-99); Sodium 134 mmol/L (135-145); eGFR 13.36
[2023-05-30] VITALS (21 sets, daily range): BP systolic 96–127; BP diastolic 70–88; BMI 31.2
[2023-05-30] MEDS: MAXIPIME 1000 MG IV ×2 (00:16→11:44)
[2023-05-30] MEDS: STERILE WATER FOR INJECTION 10 ML IV ×2 (00:16→11:44)
--- NOTE | 2023-05-30 00:30 | PTCARENOTE ---
Assessment unchanged at 0000. VSS. Febrile. Cooling blanket on.
[2023-05-30 03:46] LABS: Hematocrit 41.5 % (39.0-52.0); Hemoglobin 14.7 g/dL (13.0-18.0); Mean Corp Hgb Conc. 35.4 g/dL (33.0-37.0); Red Blood Cell Count 4.46 10^6/uL (4.70-6.10); Red Cell Dist. Width 13.3 % (11.5-14.5); White Blood Cell Count 5.3 10^3/uL (4.8-10.8)
[2023-05-30] MEDS: NSS 1000 IV ×3 (03:59→22:40)
[2023-05-30 04:06] LABS: Albumin 2.6 g/dl (3.5-5.0); Alkaline Phosphatase 29 U/L (38-126); Blood Urea Nitrogen 71 mg/dl (9-20); Calcium 7.3 mg/dl (8.4-10.2); Carbon Dioxide 15 mmol/L (22-30); Chloride 110 mmol/L (98-107); Estimated Creatinine Clearance 21 ml/min; Glucose 97 mg/dl (70-99); Potassium 5.9 mmol/L (3.5-5.1); Sodium 134 mmol/L (135-145); Total Bilirubin 1.1 mg/dl (0.2-1.3); eGFR 12.43
--- NOTE | 2023-05-30 04:14 | PTCARENOTE ---
Systems reviewed. Chemosis noted bilaterally. All other assessments unchanged.
[2023-05-30 04:30] LABS: Vancomycin Random 11.6 ug/ml
[2023-05-30 04:52] LABS: ALT (SGPT) 3070 U/L (0-50); AST (SGOT) 2379 U/L (17-59)
[2023-05-30 05:29] LABS: Mean Platelet Volume 11.8 fL (7.4-10.4); Platelet Count 84 10^3/uL (130-400)
[2023-05-30 05:30] LABS: Absolute Neutrophils -Man Diff 3.4 10^3/uL (1.4-6.5); Band Neutrophils 47 % (0-3); Monocytes 6 % (2-9); Myelocytes 3 % (-); Segmented Neutrophils 19 % (42-75)
[2023-05-30 05:31] LABS: Lymphocytes 16 % (20-51); Metamyelocytes 9 % (-)
[2023-05-30 05:32] LABS: Platelets Checked Yes
[2023-05-30 05:35] LABS: Total Cells Counted 100; Toxic Granulation 2+
[2023-05-30 05:36] LABS: Normal RBC Morphology Yes; Vacuolated Segs 1+
[2023-05-30] MEDS: NSS (PRESERVATIVE FREE) 10 ML IV (07:14)
[2023-05-30] MEDS: MIRALAX 17 GRAMS TUBE (07:14)
[2023-05-30] MEDS: PROTONIX IV 40 MG IV (07:14)
--- NOTE | 2023-05-30 07:38 | PTCARENOTE ---
pt received from previous rn- ett to vent- see settings as charted. remains unresponsive, pupils 2 and sluggish. weak gag reflex. am care provided. turned and repositioned. nsr on monitor. left nare ngt with minimal output. all safety precautions
in place.
--- NOTE | 2023-05-30 08:58 | PHA.VAN.FU ---
Vancomycin Assessment / Plan
- Assessment
Renal Function: SCR Increasing (4.5->4.8->5.1)
WBC's are: WNL
In the past 24 hrs, patient has been: Febrile
Concomitant Antimicrobials: cefepime
- Assessment - Therapeutic Drug Monitoring
Random Level: 11.6 - after one 2000 mg load dose ~ 36 hrs ago
Calculated half life (H): baased on last 2 random levels - 78 h
- Dosing Plan
Continue: dosing by random level
Dosing by Level: Re-dose today (750 mg x 1 dose)
- Monitoring Plan
No level(s) ordered at this time: due to long half life - consider random level Wednesday
- Follow Up
Pharmacy will continue to follow.
Vancomycin Follow UP
- -
Patient Age: 57
Patient Sex: Male
Vancomycin Day #: 3
Indication: Pulmonary/Respiratory
Requesting Provider: Itzel
Height / Weight:
Height 6 ft 2 in
Actual Weight 110.1 kg
Pertinent Past Medical History: BMI ~32; no med hx available; pt found unresponsive
- Vital Signs / Lab Results
Temp Pulse Resp BP Pulse Ox
99.9 F 74 24 122/82 95
05/30/23 07:28 05/30/23 07:30 05/30/23 07:30 05/30/23 07:00 05/30/23 07:31
Lab Results - Hematology
05/28/23 05/28/23 05/28/23
10:04 12:35 23:31
WBC Cancelled 8.7 4.8
Band Neutrophils 17 H
05/29/23 05/30/23
03:13 03:32
WBC 5.7 5.3
Band Neutrophils 43 H D 47 H
Lab Results - Chemistry
05/28/23 05/28/23 05/29/23
10:04 12:35 03:13
BUN Cancelled 35 H 49 H
Creatinine Cancelled 2.8 H 4.0 H
Estimated Creat Clear Cancelled 37 24
Albumin Cancelled 3.7 3.1 L
05/29/23 05/29/23 05/29/23
07:13 15:14 20:48
BUN 49 H 58 H 66 H
Creatinine 3.8 H 4.5 H* 4.8 H*
Estimated Creat Clear 28 24 22
Albumin
05/30/23
03:32
BUN 71 H
Creatinine 5.1 H*
Estimated Creat Clear 21
Albumin 2.6 L
05/28/23 05/28/23 05/28/23
10:04 12:34 12:39
Lactic Acid 4.8 H* 3.9 H Cancelled
05/28/23 05/28/23 05/29/23
15:21 21:12 01:05
Lactic Acid 3.7 H 4.1 H* 3.6 H
05/29/23
07:13
Lactic Acid 3.4 H
Microbiology Results
05/28/23 12:39 MRSA Screen - Final
Nose No Methicillin Resistant Staphylococcus aureus isolated.
05/28/23 12:35 Blood Culture - Preliminary
Blood/Venous No Growth in 24 hours- Final report to follow
05/28/23 10:04 Blood Culture - Preliminary
Blood/Venous No Growth in 24 hours- Final report to follow
Therapeutic Drug Monitoring
Random Vancomycin 11.6 ug/ml 05/30/23 03:32
--- NOTE | 2023-05-30 09:04 | W.PN.NEURO.1 ---
Today's Communication / Plan
-
Continue supportive care
Avoid sedative medications at this time
Recheck EEG if patient does not have spontaneous improvement of mentation after discontinuance of sedative medications
Neuro Assessment/Plan
Assessment
IMPRESSIONS/RECOMMENDATIONS:
Abrupt change in mental status
Most likely secondary to toxic metabolic encephalopathy. The possibility of anoxic injury is suggested by the presence of changes on CT of the head involving the globus pallidus bilaterally
Prior EEG evaluation failed to suggest discontinuous cortical rhythms which improved the likelihood of a meaningful recovery.
Myoclonic movements have spontaneously discontinued.
Better prognostic ability 3 days after discontinuance of all sedation on May 31, 2023.
Plan
Continue supportive care
Avoid sedative medications at this time
Recheck EEG if patient does not have spontaneous improvement of mentation after discontinuance of sedative medications
Consider thiamine
Will continue to follow patient.
Subjective/Objective
Subjective Data
Date of Service: May 30, 2023
Patient not able to provide his own medical history.
Objective Data
Vital Signs
Temp Pulse Resp BP Pulse Ox
37.7 C 74 24 122/82 95
05/30/23 07:28 05/30/23 07:30 05/30/23 07:30 05/30/23 07:00 05/30/23 07:31
Lab Results
05/30/23 03:32
05/30/23 03:32
PT 21.3 Sec (11.4-14.6) H 05/28/23 12:39
INR 1.86 05/28/23 12:39
APTT Cancelled 05/29/23 15:45
Sodium 134 mmol/L (135-145) L 05/30/23 03:32
Potassium 5.9 mmol/L (3.5-5.1) H 05/30/23 03:32
BUN 71 mg/dl (9-20) H 05/30/23 03:32
Glucose 97 mg/dl (70-99) 05/30/23 03:32
Calcium 7.3 mg/dl (8.4-10.2) L 05/30/23 03:32
Ur Buprenorphine Negative (Negative) 05/28/23 10:04
Patient Allergies
penicillin G Allergy (Verified 05/28/23 09:59)
rash, hives
Review of Systems
-
Unable to obtain full review of systems at this time due to: Other (Unresponsiveness)
History Source: Patient
All other systems: Reviewed and negative
Physical Exam
-
General: No Apparent Distress, Intubated and Appears Stated Age
Eyes: Round OU and [place] Conjunctivae
HEENT: Anicteric and Moist Mucous Membranes
Neck: Full Range of Motion
Respiratory: No Dyspnea
Cardiac: No JVD
GI: Non-distended
Skin: Unremarkable
Extremities: No Clubbing, No Cyanosis and No Edema
Psych: Unable to Assess
Extended Neurological Exam
Mood & Affect: Unable to Assess
Attention Span & Concentration: Unresponsive to Verbal Stimuli and Unresponsive to Physical Stimuli; Negative Awake, Alert or Interactive
Memory: Unable to Assess
Tremor: Hand Tremor Absent and Head Tremor Absent
Involuntary Movement: None
Speech: Mute
Cranial Nerve II: Left Eye: Pupillary Size Unremarkable and Unable to Assess Visual Viramontes
Cranial Nerve II: Right Eye: Pupillary Size Unremarkable and Unable to Assess Visual Viramontes
Cranial Nerves III, IV, : Extraocular Movement: Negative Absent Doll's Eyes
Cranial Nerve V: Facial Sensation: Other (negative corneals bilaterally)
Cranial Nerve VII: Facial Symmetry: Normal Facial Symmetry
Cranial Nerve VIII: Hearing: Unable to Assess
Cranial Nerves IX, X: Palate Movement: Unable to Assess
Cranial Nerve XI: Shoulder Shrug: Unable to Assess
Cranial Nerve XII: Tongue Protusion: Unable to Assess
Muscle Strength, Overall: Negative Spontaneously Moves
Muscle Bulk & Tone: Bulk Unremarkable and Tone Unremarkable
Pronator Drift: Unable to Assess
Cold Sensation: Unable to Assess
Vibration Sensation: Unable to Assess
Touch Sensation: Negative Withdrawal to Pain
Coordination: Unable to Assess
Gait & Station: Unable to Assess
Data Reviewed
-
CT Head: Report Reviewed
Labs: Report Reviewed
Reviewed with: Nurse
Old Records: Summarized
Past History
Past History
ED Past Medical History: HTN, Psychiatric (Major depression with suicidal attempts) and Other (Aspiration pneumonia, shock with hypotension nonischemic cardiac injury); Negative Renal failure (Acute renal insufficiency)
ED Past Surgical History: Other (unknown)
Social History
Tobacco: Other (unknown)
Alcohol: Other (unknown)
Medications
-
Medications:
Generic Name Dose Route Start Last Admin
Trade Name Freq PRN Reason Stop Dose Admin
Acetaminophen 650 mg 05/28/23 16:42 05/29/23 20:39
Acetaminophen (Oral Solution) 650 Mg/20.3 Ml Cup TUBE 06/25/23 16:41 650 mg
Q6HPRN PRN Administration
Fever >101 F
Cefepime HCl 1,000 mg 05/29/23 00:00 05/30/23 00:16
Cefepime Hcl 1,000 Mg/11.3 Ml Vial IV 1,000 mg
Q12H MADDIE Administration
Fentanyl Citrate 50 mcg 05/28/23 13:00 05/28/23 15:07
Fentanyl (50 Mcg/Ml) 100 Mcg/2 Ml Ampul IV 06/11/23 12:59 50 mcg
[id number] PRN Administration
see protocol
Protocol
Vancomycin HCl 1 each/ Device 0 mls @ 0 mls/hr 05/28/23 12:37
IV
PER PROTOCOL MADDIE
Protocol
As Directed
Sodium Chloride 1,000 mls @ 150 mls/hr 05/30/23 02:30 05/30/23 03:59
Nss IV 1,000 mls
.Q6H40M MADDIE Administration
Lorazepam 2 mg 05/28/23 14:58 05/28/23 15:36
Lorazepam 2 Mg/Ml Vial IV 06/25/23 14:57 2 mg
Q4HPRN PRN Administration
vent dyssynchrony
Pantoprazole Sodium 40 mg 05/29/23 08:00 05/30/23 07:14
Protonix 40 Mg Iv Push IV 06/26/23 07:59 40 mg
DAILY MADDIE Administration
Polyethylene Glycol 17 grams 05/29/23 08:00 05/30/23 07:14
Polyethylene Glycol Powder 17 Grams Packet TUBE 06/26/23 07:59 17 grams
DAILY MADDIE Administration
Sodium Chloride 0 flush 05/28/23 15:00
Sodium Chloride 0.9% (Flush) Syringe IV 06/25/23 14:59
PER PROTOCOL MADDIE
Sodium Chloride 1 ml 05/28/23 14:58 05/28/23 15:37
Nss (Pf) 10 Ml Vial For Ativan 2 Mg Dose IV 06/25/23 14:57 1 ml
Q4HPRN PRN Administration
IV LORAZEPAM DILUTION
Sodium Chloride 10 ml 05/29/23 08:00 05/30/23 07:14
Sodium Chloride 0.9% (Preservative Free) 10 Ml Vial IV 06/26/23 07:59 10 ml
DAILY MADDIE Administration
Sterile Water 10 ml 05/29/23 00:00 05/30/23 00:16
Sterile Water For Injection 10 Ml Vial IV 06/26/23 00:00 10 ml
Q12H MADDIE Administration
[2023-05-30] MEDS: VANCOCIN 150 IV (09:33)
--- NOTE | 2023-05-30 11:09 | W.PN.HOSP.TC ---
Today's Communication/Plan
-
Continue vent support
IV fluids
Monitor for neurologic recovery.
Monitor urine output.
IV antibiotics covering aspiration pneumonia.
Assessment / Plan
Assessment / Plan
IMPRESSION:
Toxic metabolic encephalopathy secondary to overdose.
Ventilatory dependent respiratory failure
-Intubated on the field on
Concern for anoxic encephalopathy
Intentional overdose suspected benzodiazepines.
Severe shock with hypotension. Multifactorial secondary to hypovolemia and sepsis.
Nonischemic cardiac injury.
Shock liver
Acute kidney injury
Hypothermia
Respiratory acidosis.
Lactic acidosis.
Aspiration pneumonia with bilateral infiltrates
Sepsis secondary to aspiration pneumonia
Suspected benzodiazepine abuse/dependence
Conditions prior to admission:
Depression with prior history of suicidal attempt
Essential hypertension
Insomnia
Obesity with reported weight loss due to lifestyle modification
PLAN:
Critically ill.
Admitted to intensive care unit.
Toxic metabolic encephalopathy secondary to overdose.
Urine drug screen positive for benzodiazepines, amphetamines, marijuana. Serum Tylenol and salicylate level undetectable.
Unknown time of exposure.
On arrival to emergency room unresponsive while off any sedative medications after given ketamine for intubation in the field.
CT scan of the head with no evidence of cerebral edema on presentation.
Neurologic exam with weak cough, no corneal reflexes. Spontaneous respirations while on the vent
Continue close neurologic monitoring.
Wean off fentanyl and monitor for neurologic recovery
EEG nondiagnostic
Repeat CT scan of the head 05/28:Round 9 mm symmetric low attenuation lesions in the GLOBUS PALLIDUS BILATERALLY consistent with ANOXIC-ISCHEMIC ENCEPHALOPATHY. Diagnostic possibilities are (1) an ACUTE TOXIC ENCEPHALOPATHY (drug abuse) or (2) carbon
monoxide poisoning.
Neurology consultation appreciated
Ventilatory dependent respiratory failure secondary to overdose.
ABG consistent with respiratory acidosis with limited metabolic compensation
Continue assist-control ventilation
As needed sedation as per arcade game technician.
Follow-up ABG
Severe shock multifactorial due to hypovolemia, sedatives, suspect sepsis with aspiration pneumonia.
Received IV bolus of isotonic solution and remains hypotensive.
Continue isotonic solution
Continue Levophed with titration to MAP 55-60.
Acute kidney injury.
Metabolic/lactic acidosis.
Hyperkalemia
Dave catheter in place.
Creatinine continue to rise with minimal urine output
IV fluids with addition of bicarb for maintenance.
Follow temporize potassium level.
Nephrology consultation.
Aspiration pneumonia
Chest x-ray with bilateral left greater than right infiltrates.
Blood cultures pending.
Broad-spectrum antibiotics: Vancomycin/cefepime pending sputum and blood cultures.
Adjust dose according to renal function
Nonischemic cardiac injury
Troponin peak at 12
Echocardiogram with preserved biventricular function and no evidence of regional wall motion abnormalities
ECG with no ischemic changes
Cardiology input appreciated
Goals of care discussion with patient's family at the bedside. They understand significance of current situation in patient with clinical as well as radiologic signs of anoxic brain injury and multiorgan failure not limited to JESENIA with oliguria.
According to patient and family wishes, they would not pursue any aggressive means of life support including hemodialysis. They would like to continue further close monitoring to complete 72 hours of support and reassessment for possible neurologic
recovery.
They wish patient's CODE STATUS to be changed to DNR.
DVT prophylaxis/heparin
DNR
Total Critical Care Time__60__ minutes. I was immediately available to the patient and staff. I personally examined, reviewed labs, diagnostic images/reports, interpretations, treatment plans, discussed patient care with other providers and
family or caregivers (if patient is unable to make decisions), entered orders as appropriate and documented the medical record.
Anticipated Discharge: > 48 hours
Subjective/Interval History
-
Date of Service: May 30, 2023
Objective Data
-
Labs:
Laboratory Results
05/30/23
03:32
WBC 5.3
Hgb 14.7
Hct 41.5
Plt Count 84 L D
Sodium 134 L
Potassium 5.9 H
Chloride 110 H
Carbon Dioxide 15 L
BUN 71 H
Creatinine 5.1 H*
Glucose 97
Calcium 7.3 L
Total Bilirubin 1.1
AST 2379 H*
ALT 3070 H*
Alkaline Phosphatase 29 L
Vital Signs:
Vital Signs
Temp Pulse Resp BP Pulse Ox
99.8 F 74 24 111/78 96
05/30/23 10:48 05/30/23 11:00 05/30/23 11:00 05/30/23 11:00 05/30/23 09:00
I&O
05/29/23 05/30/23 05/31/23
06:59 06:59 06:59
Intake Total 3765 / 4230 3390 / 3490 650 / 650
Output Total 391 / 393 177 / 182 30 / 30
Balance 3374 / 3837 3213 / 3308 620 / 620
Physical Exam
-
General: Well Developed and No Apparent Distress
HEENT: Normocephalic, Atraumatic and Moist Mucous Membranes
Respiratory: Clear to Auscultation
Cardiac: Regular Rhythm and S1/S2; Negative Murmur, Rub or Gallop
GI: Soft, Nontender, Nondistended and Normal Bowel Sounds; Negative Organomegaly
Rectal: Deferred by Provider
Musculoskeletal: No Clubbing, No Cyanosis and No Edema
Skin: Negative Rash
Neuro: Other (No spontaneous movements)
--- NOTE | 2023-05-30 11:31 | W.PN.INTV ---
Today's Communication / Plan
Recommendations
Continue mechanical ventilation without change
Repeat ABG
Start bicarbonate drip
Follow renal function
Avoid nephrotoxins
Avoid sedation
Continue antibiotics
Keppra started
DNR status
Assessment
-
57-year-old man with history of depression, daily alcohol use, prior suicidal attempt 5 years ago per family found unresponsive in his car. Required emergent intubation. CT head without abnormality. Multiorgan failure noted.
Acute hypercapnic respiratory failure recurrent intubation on the field
ABG 7.0
Toxic metabolic encephalopathy: Suspected intentional drug overdose: Xanax/Ambien bottle found
Positive amphetamines/benzos/marijuana
Negative Tylenol and narcotics. Negative cocaine.
Cannot rule out ischemic injury: CT head negative reviewed
Possible aspiration pneumonia
Chest x-ray: Showed left sided infiltrate, reviewed
Non anion gap metabolic acidosis-with increased lactic acid
Lactic acid on admission 4.8
Increased troponin: Non-[place]J likely demand ischemia.
Shock: Hypovolemic/possibly septic given aspiration pneumonitis pneumonia
Abnormal LFTs probably shock liver-rule out rhabdo
Acute kidney injury possibly ATN
Hyperkalemia
Assessment and plan:
Remains critically ill, intubated, unresponsive, no meaningful neurological recovery.
Multiorgan failure, acute kidney injury, liver ischemic injury, hypotensive.
-
Suspect significant anoxic brain injury anoxic brain injury suspected.
CT head 05/29/2023: Consistent with changes from ischemic/anoxic injury.
Does have respiratory effort, equal to pupils
Minimal gag reflex.
Not following commands
Does not withdraw to pain
EEG without seizure activity suggestive of diffuse cortical dysfunction without focal abnormality. 05/28/2023
neurology following, Keppra started.
Continue supportive care for now, best predictor of any meaningful neurological recovery at 72 hours of any sedation which will be tomorrow.
-
Continue to hold any sedation. Initially received some fentanyl due to increased work of breathing.
Avoid hypotension
-
Aspiration pneumonia suspect : cont. broad-spectrum antibiotics
Chest x-ray: Left-sided infiltrate.
No leukocytosis
Fever curve improving
-
Mechanical ventilation settings reviewed: Continue with current settings
AC 550/16/5/70%
ABG 05/29/2023: 7.24/46/104
Metabolic and respiratory acidosis
Repeat ABG, will adjust ventilator as necessary
-
Discontinue normal saline
Start bicarbonate drip given metabolic acidosis and hyperkalemia
-
Shock: norepinephrine to maintain mean arterial blood pressure above 65 mmHg.
Levophed currently off.
Lactic acid 3.4, suspect mainly type II due to liver dysfunction.
Continue Dave urinary output
-
Abnormal LFTs: P likely due to ischemic injury
Rhabdomyolysis CK 14,000
Continue supportive care, IV fluids
-
Acute kidney injury possibly ATN
Hyperkalemia noted, status post multiple doses insulin and Lokelma.
Restart bicarbonate drip
Unfortunately, worsening renal function, urinary output and hyperkalemia.
Nephrology consulted, case discussed, limited options at this point.
Discussed with Dr. Reed who discussed with family at the bedside, they would not want dialysis per
Hopefully can move bowels
Unable to diurese
-
Head of the bed elevation
NG tube placement-keep n.p.o. for now.
-
Increase troponin-possible non-NJ.
Briefly on heparin drip, discontinue after discussion with cardiology
Echocardiogram: Discussed no regional motion wall abnormalities. Preserved LVEF
If improved neurologically ischemic evaluation in the future
-
DVT prophylaxis with heparin subcu
Protonix for GI prophylaxis
-
Dr. Hammond updated family 05/28/2023: Apparently patient has history of depression. Prior suicidal attempt 5 years ago. Drinks alcohol daily. Recently had lost some weight with lifestyle modifications. There is a lot of stress at home. The last
time he was seen well was on Wednesday night.
Discussed with Dr. Reed who discussed with the family, would not want any heroic intervention if patient is not fully recovering from the neurological status. They would not want tracheotomy or feeding tubes. Would not want prolonged
mechanical ventilation.
For now continue supportive care and reevaluate on a daily basis in the next 24 to 48 hours for possible recovery.
DNR status has been instituted
-
Critical care statement: A total of 32minutes of critical care time was provided for this patient today. This includes management of unstable vital signs, evaluation of the patient at bedside, reviewing the patient's pertinent medical records
including ventilator settings, arterial blood gases, radiographs, microbiology, laboratory evaluations and discussion with primary team, critical care nursing, and respiratory therapy.
Subjective Dataa
Subjective Data
Date of Service:
Date of Service: May 30, 2023
Chief Complaint: Medical Detailist Follow Up (Hypercapnic respiratory failure-drug overdose/suicidal attempt)
Subjective:
Unfortunately, no meaningful neurological recovery.
Remains on mechanical ventilation
Review of Systems
General: Unobtainable - Pat Unresp
Objective Data
Data Reviewed
Vital Signs / I&O / Oxygen:
Vital Signs
Temp Pulse Resp BP Pulse Ox
99.8 F 74 24 111/78 96
05/30/23 10:48 05/30/23 11:00 05/30/23 11:00 05/30/23 11:00 05/30/23 09:00
Intake and Output
05/29/23 05/30/23 05/31/23
06:59 06:59 06:59
Intake Total 3765 / 4230 3390 / 3490 650 / 650
Output Total 391 / 393 177 / 182 30 / 30
Balance 3374 / 3837 3213 / 3308 620 / 620
SaO2 [A/C] 95
SaO2 96
Physical Exam
General: Respiratory Distress (n) and Comfortable
HEENT: Normocephalic and Other (ET tube in place)
Cardiovascular: S1-S2 and Regular Rhythm
Respiratory: Clear, Non-Labored Respirations and ET Tube (No secretions or hemoptysis)
GI: Soft and Non Distended
Neurology: Other (Unresponsive, on mechanical ventilation. Pupils are equal, small and sluggish. Minimal gag reflex. Has respiratory effort. No response to pain)
Skin: Warm
Labs/Micro/Reports
Lab Data
05/30/23 03:32
05/30/23 03:32
Laboratory Results
05/29/23
14:50
pH 7.24 L
pCO2 46
pO2 104
HCO3 19.7 L
O2 Delivery Level 40
Microbiology
05/28/23 10:04 Blood/Venous Blood Culture - Preliminary
No Growth in 48 hours- Final report to follow
05/28/23 12:39 Nose MRSA Screen - Final
No Methicillin Resistant Staphylococcus aureus isolated.
05/28/23 12:35 Blood/Venous Blood Culture - Preliminary
No Growth in 24 hours- Final report to follow
[2023-05-30] MEDS: SODIUM BICARBONATE 1150 MEQ IV (12:03)
--- NOTE | 2023-05-30 12:13 | PTCARENOTE ---
family at bedside and updated. pt dnr. assessment unchanged.
[2023-05-30 13:02] LABS: B.E. -5.5 mmol/L; HCO3 18.2 mmol/L (21-28); O2 Saturation % 97.2 % (94-98); PCO2 30 mmHg (35-48); PO2 83 mmHg (83-108); pH 7.39 (7.35-7.45)
--- NOTE | 2023-05-30 13:53 | W.PN.UPDATE ---
Update Note
Progress Note Update
Dr. Hammond updated all family members in detail.
Likely patient sustained significant brain injury.
Unable to predict amount of disability.
Family is contemplating stopping all resuscitation efforts. Patient would not want to have any disability or be on mechanical ventilation.
For now maintain DNR.
Continue supportive care
They will be discussed further and let us know how aggressive to proceed.
--- NOTE | 2023-05-30 15:16 | CHAP ---
Mrs. Kulkarni expressed concern that insurance information had not been asked for. Connected her with agents' records clerk to help with that. Later, I was paged for the family, after med staff had spoken with them. Talked with [id number], who then
helped the family reach a conclusion. They will wait the 72 hours before withdrawing. This brought some peace. A prayer blanket was provided, and we prayed together, commending Rj to God. The family plans to return in the morning.
--- NOTE | 2023-05-30 15:29 | W.CON.NEPH ---
Medical History
-
History of Present Illness:
Patient is 57 years old male who has HTN and HLD was able to come off meds with losing wt in last few years, was found by bystander unresponsive in the car on 05/27. reportedly two empty bottle of Xanax and a half empty bottle of Ambien found next to
the patient. No response to Narcan reported
Required intubation on the field. On arrival to the emergency room patient initially hypothermic and hypotensive. On admit his cr noted at 2.8, (no previous baseline labs available to compare) and progressively increased to 5.1 today with decreased
UOP anuric now. He also has hyperkalemia with rhabdomyolysis 14k. he also elevated troponin. At this point CT head done on 05/28 shows anoxic injury changes in brain. neurology following. Pt currently with out sedation and not responsive. LFTs
significantly high. Further history is unable to obtain.
Past Medical History
HLD
Depression with prior history of suicidal attempt
Essential hypertension
Insomnia
Obesity with reported weight loss due to lifestyle modification
Social History
not available , pt intubated
Family History
not available, not intubated
Allergies / Home Medications
Allergy/AdvReac Type Severity Reaction Status Date / Time
penicillin G Allergy rash, hives Verified 05/28/23 09:59
�Medication �Instructions �Recorded �Confirmed �Type
Ketamine Hcl 05/28/23 History
alprazolam 1 mg tablet 1 mg PO TID 05/28/23 05/29/23 History
dextroamphetamine-amphetamine ER 10 mg PO DAILY 05/28/23 History
10 mg 24hr capsule,extend release
(Adderall XR)
dextroamphetamine-amphetamine ER 20 mg PO DAILY 05/28/23 05/29/23 History
20 mg 24hr capsule,extend release
(Adderall XR)
latanoprost (PF) 0.005 % eye drops 1 drp BOTH EYES HS Eye Condition 05/28/23 05/29/23 History
in a dropperette
losartan 100 1 tab PO DAILY Blood Pressure 05/28/23 05/29/23 History
mg-hydrochlorothiazide 25 mg tablet
sildenafil 100 mg tablet 100 mg PO DAILYPRN PRN ED 05/28/23 05/29/23 History
timolol 0.5 % eye drops 1 drp BOTH EYES BID 05/28/23 05/29/23 History
tramadol 50 mg tablet 50 mg PO Q4H PRN pain 05/28/23 History
zolpidem 12.5 mg tablet,extended 12.5 mg PO HS insomnia 05/28/23 05/29/23 History
release,multiphase
Review of Systems
-
Unable to obtain full review of systems at this time due to: Patient Intubation
Physical Exam
Vital Signs
Vital Signs
Temp Pulse Resp BP Pulse Ox
99.9 F 76 24 124/79 94
05/30/23 14:37 05/30/23 14:00 05/30/23 14:00 05/30/23 14:00 05/30/23 14:00
Lab Results
WBC 5.3 10^3/uL (4.8-10.8) 05/30/23 03:32
RBC 4.46 10^6/uL (4.70-6.10) L 05/30/23 03:32
Hgb 14.7 g/dL (13.0-18.0) 05/30/23 03:32
Hct 41.5 % (39.0-52.0) 05/30/23 03:32
Plt Count 84 10^3/uL (130-400) L D 05/30/23 03:32
Sodium 134 mmol/L (135-145) L 05/30/23 03:32
Potassium 5.9 mmol/L (3.5-5.1) H 05/30/23 03:32
Chloride 110 mmol/L (98-107) H 05/30/23 03:32
Carbon Dioxide 15 mmol/L (22-30) L 05/30/23 03:32
BUN 71 mg/dl (9-20) H 05/30/23 03:32
Creatinine 5.1 mg/dL (0.7-1.3) H* 05/30/23 03:32
eGFR 12.43 05/30/23 03:32
Glucose 97 mg/dl (70-99) 05/30/23 03:32
Calcium 7.3 mg/dl (8.4-10.2) L 05/30/23 03:32
Albumin 2.6 g/dl (3.5-5.0) L 05/30/23 03:32
46: CT head
IMPRESSION:
1. Round 9 mm symmetric low attenuation lesions in the GLOBUS PALLIDUS BILATERALLY consistent with ANOXIC-ISCHEMIC ENCEPHALOPATHY. Diagnostic possibilities are (1) an ACUTE TOXIC ENCEPHALOPATHY (drug abuse) or (2) carbon monoxide poisoning.
2. Mild white matter leukoaraiosis in the right frontal lobe.
3. Mild diffuse cerebral and cerebellar volume loss.
4/5: CXR
IMPRESSION:
There is airspace disease throughout the left lung. Early pneumonia is suspected.
Physical Exam
General: Other (unresponsive)
Respiratory: Clear and Other (intuabted)
Cardiac: S1/S2 and Regular Rate/Rhythm
Abdomen: Soft, Nontender and Nondistended
Musculoskeletal: No Edema
Skin: No Rash
Neuro: Other (unable ot assess )
Psych: Other (unable to assess)
Assessment/Plan
-
IMP:
JESENIA
Non gap metabolic acidosis
hyperkalemia
Toxic metabolic encephalopathy secondary to overdose.
Ventilatory dependent respiratory failure
Concern for anoxic encephalopathy
Intentional overdose suspected benzodiazepines.
Severe shock with hypotension
Nonischemic cardiac injury.
Shock liver
Hypothermia
Respiratory acidosis on admit
Lactic acidosis.
Aspiration pneumonia with bilateral infiltrates
Sepsis secondary to aspiration pneumonia
Thrombocytopenia
Suspected benzodiazepine abuse/dependence
Depression with prior history of suicidal attempt
Essential hypertension
Insomnia
Obesity with reported weight loss due to lifestyle modification
Plan:
A/w found unresponsive in car, OD
JESENIA-suspect ischemic ATN, bland UA, minimal UOP with goodrich
cr cont to peak , evolving hyperkalemia and met acidosis
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
noted that he has anoxic injury changes on CT head
cont IV bicarb fluids for met acidosis , lasix prn
family at bedside noted will likely withdraw care tomorrow
cont supportive care for now
d/w nursing
CC time spent 35min
--- NOTE | 2023-05-30 16:06 | PTCARENOTE ---
assessment of systems unchanged.
[2023-05-30 17:50] LABS: B.E. -4.4 mmol/L; PCO2 30 mmHg (35-48); PO2 187 mmHg (83-108); pH 7.41 (7.35-7.45)
[2023-05-30 17:55] LABS: Hematocrit 39.7 % (39.0-52.0); Hemoglobin 14.1 g/dL (13.0-18.0); Mean Corp Hgb Conc. 35.5 g/dL (33.0-37.0); Mean Corpuscular Hgb 32.6 pg (27.0-31.0); Mean Corpuscular Volume 91.9 fL (80.0-94.0); Mean Platelet Volume 11.4 fL (7.4-10.4); Nucleated Red Blood Cells % 0 % (-); Platelet Count 85 10^3/uL (130-400); Red Blood Cell Count 4.32 10^6/uL (4.70-6.10); Red Cell Dist. Width 13.2 % (11.5-14.5); White Blood Cell Count 7.7 10^3/uL (4.8-10.8)
[2023-05-30 17:58] LABS: Urine Albumin 1+ (Neg - Trace); Urine Bilirubin 1+ (Negative); Urine Character Clear (Clear); Urine Color Yellow; Urine Glucose 1+ (Negative); Urine Ketone 1+ (Negative); Urine Leukocyte Trace (Negative); Urine Nitrite Negative (Negative); Urine Occult Blood 4+ (Negative); Urine Specific Gravity 1.025 (<1.030); Urine Urobilinogen Negative (Neg - 1+)
[2023-05-30 18:04] LABS: APTT 31.7 Sec (23.4-35.0); INR 1.63; PT 19.1 Sec (11.4-14.6)
[2023-05-30 18:08] LABS: Albumin 2.5 g/dl (3.5-5.0); Alkaline Phosphatase 50 U/L (38-126); Amylase 38 U/L (30-110); Blood Urea Nitrogen 83 mg/dl (9-20); Calcium 7.6 mg/dl (8.4-10.2); Carbon Dioxide 17 mmol/L (22-30); Chloride 107 mmol/L (98-107); Direct Bilirubin 0.4 mg/dl (0.0-0.4); Estimated Creatinine Clearance 17 ml/min; GGTP 45 U/L (15-73); Glucose 107 mg/dl (70-99); LDH 571 U/L (120-246); Lipase 31 U/L (23-300); Potassium 4.7 mmol/L (3.5-5.1); Sodium 133 mmol/L (135-145); Total Bilirubin 0.9 mg/dl (0.2-1.3); Total Protein 4.7 g/dl (6.3-8.2); eGFR 9.64
[2023-05-30 18:14] LABS: AST (SGOT) 1145 U/L (17-59)
[2023-05-30 18:23] LABS: ALT (SGPT) 2386 U/L (0-50)
[2023-05-30 18:24] LABS: Band Neutrophils 49 % (0-3); Lymphocytes 7 % (20-51); Metamyelocytes 5 % (-); Monocytes 6 % (2-9)
[2023-05-30 18:24] LABS: Urine Amorphous Seen; Urine Bacteria Many (Negative); Urine White Cell 26-30 /HPF (0-5)
[2023-05-30 18:25] LABS: Absolute Neutrophils -Man Diff 5.7 10^3/uL (1.4-6.5); Myelocytes 7 % (-); Segmented Neutrophils 26 % (42-75)
[2023-05-30 18:26] LABS: Normal RBC Morphology Yes; Platelets Checked Yes; Toxic Granulation Slight
[2023-05-30 18:27] LABS: Total Cells Counted 100
--- NOTE | 2023-05-30 18:28 | PTCARENOTE ---
collaborated with Hima from [facility]- family agreed for organ procurement- anesthesia at bedside placing wes. all labs sent. discussed with Dr. Lewis and Estefanía Reynoso, IR consult placed.
--- NOTE | 2023-05-30 18:30 | W.PN.ANS.LIN ---
Anesthesia IV & A-Line Note
- IV/Arterial Line
Right Radial Arrow 20 (04/25)
IV Line Comments: Uneventful Procedure
Allens test completed pre-procedure: Yes
A-Line Comments: Sterile technique as per standard protocol, Uneventful procedure, Seldinger technique used, Biopatch applied
Funtioning A-line in situ: No
A-line in at:: 18:22
--- NOTE | 2023-05-30 20:30 | PTCARENOTE ---
Rec'd care of patient at 1900. Patient remains unresponsive on the vent. No sedation. NSR on tele monitor. VSS. GOL coordinator at bedside. Q4hr labs ordered. HD access placed by IRAD. Pending initiation of CRRT.
--- NOTE | 2023-05-30 20:47 | W.PN.UPDATE ---
Update Note
Progress Note Update
Pt will be starting on CRRT for organ donation
orders provided
[2023-05-30] MEDS: RFP-401 Hemodialysis Solution (K+ 4 mEq/L) 15000 ML CRRT-IRR (21:25)
[2023-05-30 22:09] LABS: Hematocrit 38.3 % (39.0-52.0); Hemoglobin 13.7 g/dL (13.0-18.0); Mean Corp Hgb Conc. 35.8 g/dL (33.0-37.0); Mean Corpuscular Hgb 32.8 pg (27.0-31.0); Mean Corpuscular Volume 91.6 fL (80.0-94.0); Mean Platelet Volume 11.3 fL (7.4-10.4); Platelet Count 84 10^3/uL (130-400); Red Blood Cell Count 4.18 10^6/uL (4.70-6.10); Red Cell Dist. Width 13.1 % (11.5-14.5); White Blood Cell Count 8.2 10^3/uL (4.8-10.8)
[2023-05-30 22:11] LABS: HCO3 18.8 mmol/L (21-28); O2 Saturation % 94.2 % (94-98); PCO2 31 mmHg (35-48); PO2 66 mmHg (83-108); pH 7.39 (7.35-7.45)
[2023-05-30 22:18] LABS: INR 1.53; PT 18.3 Sec (11.4-14.6)
[2023-05-30 22:19] LABS: APTT 31.1 Sec (23.4-35.0)
[2023-05-30 22:29] LABS: Albumin 2.4 g/dl (3.5-5.0); Alkaline Phosphatase 50 U/L (38-126); Amylase 39 U/L (30-110); Blood Urea Nitrogen 87 mg/dl (9-20); Calcium 7.6 mg/dl (8.4-10.2); Carbon Dioxide 18 mmol/L (22-30); Chloride 107 mmol/L (98-107); Direct Bilirubin 0.4 mg/dl (0.0-0.4); Estimated Creatinine Clearance 16 ml/min; GGTP 43 U/L (15-73); Glucose 111 mg/dl (70-99); LDH 539 U/L (120-246); Lipase 31 U/L (23-300); Potassium 4.5 mmol/L (3.5-5.1); Sodium 133 mmol/L (135-145); Total Bilirubin 0.9 mg/dl (0.2-1.3); Total Protein 4.5 g/dl (6.3-8.2); eGFR 8.96
--- NOTE | 2023-05-30 22:39 | PTCARENOTE ---
CRRT initiated. VSS.
[2023-05-30 22:40] LABS: ALT (SGPT) 2030 U/L (0-50); AST (SGOT) 855 U/L (17-59)
[2023-05-31] VITALS: BP 127/86
--- NOTE | 2023-05-31 00:04 | PTCARENOTE ---
HD catheter malfunctioning. Unable to get blood return from venous access. CRRT disconnected at 2340. MANAGER LAND at bedside. Orders pending.
[2023-05-31] MEDS: MAXIPIME 1000 MG IV ×2 (00:27→05:13)
[2023-05-31] MEDS: STERILE WATER FOR INJECTION 10 ML IV ×2 (00:27→05:14)
[2023-05-31] MEDS: CATHFLO/ACTIVASE 2 MG IV (00:47)
--- NOTE | 2023-05-31 00:47 | PTCARENOTE ---
PLASTICS BENCH MECHANIC at bedside infusing cathflo into HD cath. Will recheck in 30 minutes.
[2023-05-31 02:02] LABS: B.E. -4.4 mmol/L; HCO3 20.2 mmol/L (21-28); O2 Saturation % 98.5 % (94-98); PCO2 35 mmHg (35-48); PO2 120 mmHg (83-108); pH 7.37 (7.35-7.45)
[2023-05-31 02:06] LABS: Hematocrit 38.5 % (39.0-52.0); Hemoglobin 13.6 g/dL (13.0-18.0); Mean Corp Hgb Conc. 35.3 g/dL (33.0-37.0); Mean Corpuscular Hgb 32.5 pg (27.0-31.0); Mean Corpuscular Volume 92.1 fL (80.0-94.0); Mean Platelet Volume 11.2 fL (7.4-10.4); Platelet Count 73 10^3/uL (130-400); Red Blood Cell Count 4.18 10^6/uL (4.70-6.10); Red Cell Dist. Width 13.2 % (11.5-14.5); White Blood Cell Count 8.3 10^3/uL (4.8-10.8)
[2023-05-31 02:18] LABS: AST (SGOT) 706 U/L (17-59); Albumin 2.4 g/dl (3.5-5.0); Alkaline Phosphatase 53 U/L (38-126); Amylase 35 U/L (30-110); Blood Urea Nitrogen 89 mg/dl (9-20); Calcium 7.5 mg/dl (8.4-10.2); Carbon Dioxide 17 mmol/L (22-30); Chloride 108 mmol/L (98-107); Direct Bilirubin 0.4 mg/dl (0.0-0.4); Estimated Creatinine Clearance 16 ml/min; GGTP 43 U/L (15-73); Glucose 113 mg/dl (70-99); LDH 518 U/L (120-246); Lipase 30 U/L (23-300); Potassium 4.7 mmol/L (3.5-5.1); Sodium 135 mmol/L (135-145); Total Bilirubin 0.9 mg/dl (0.2-1.3); Total Protein 4.6 g/dl (6.3-8.2); eGFR 8.96
[2023-05-31 02:20] LABS: INR 1.63; PT 19.2 Sec (11.4-14.6)
--- NOTE | 2023-05-31 02:43 | PTCARENOTE ---
HD cath with blood return post infusion of cathflo. CRRT restarted at 0240.
[2023-05-31 02:51] LABS: ALT (SGPT) 1843 U/L (0-50)
--- NOTE | 2023-05-31 03:16 | PTCARENOTE ---
A-line briefly alarming for BP 180-190/100-110's. HR 70-80's. Patient reassessed- no changes. Pupils remain reactive. RR increased to 26-28. BP back down to 150-160's/80s. BULB INSPECTOR and GOL coordinator aware.
[2023-05-31 03:35] VITALS: BMI 31.9
[2023-05-31] MEDS: ATIVAN 2 MG IV ×3 (03:51→13:55)
[2023-05-31] MEDS: NSS (PRESERVATIVE FREE) 1 ML IV ×2 (03:51→13:56)
[2023-05-31 04:00] VITALS: BP 151/96
--- NOTE | 2023-05-31 04:16 | PTCARENOTE ---
Patient breathing irregularly. Dyssynchronous with the vent. 2mg IV Ativan administered. Vitals stable. CRRT maintained.
[2023-05-31 04:18] LABS: COVID-19 Antigen Negative (Negative)
[2023-05-31 05:42] LABS: Absolute Neutrophils -Man Diff 6.2 10^3/uL (1.4-6.5); Atypical Lymphocytes 1 %; Band Neutrophils 47 % (0-3); Lymphocytes 6 % (20-51); Metamyelocytes 7 % (-); Monocytes 6 % (2-9); Myelocytes 5 % (-); Normal RBC Morphology Yes; Platelets Checked Yes; Segmented Neutrophils 28 % (42-75); Total Cells Counted 100; Toxic Granulation 2+; Vacuolated Segs 1+
[2023-05-31 06:22] LABS: B.E. -5.9 mmol/L; HCO3 18.8 mmol/L (21-28); O2 Saturation % 98.7 % (94-98); PCO2 34 mmHg (35-48); PO2 139 mmHg (83-108); pH 7.35 (7.35-7.45)
[2023-05-31 06:24] LABS: Hematocrit 40.3 % (39.0-52.0); Hemoglobin 14.2 g/dL (13.0-18.0); Mean Corp Hgb Conc. 35.2 g/dL (33.0-37.0); Mean Corpuscular Hgb 32.7 pg (27.0-31.0); Mean Corpuscular Volume 92.9 fL (80.0-94.0); Mean Platelet Volume 11.6 fL (7.4-10.4); Nucleated Red Blood Cells % 0.3 % (-); Platelet Count 50 10^3/uL (130-400); Red Blood Cell Count 4.34 10^6/uL (4.70-6.10); Red Cell Dist. Width 13.2 % (11.5-14.5); White Blood Cell Count 7.8 10^3/uL (4.8-10.8)
[2023-05-31 06:35] LABS: INR 1.56; PT 18.5 Sec (11.4-14.6)
[2023-05-31 06:36] LABS: APTT 37.6 Sec (23.4-35.0)
[2023-05-31 06:50] LABS: AST (SGOT) 594 U/L (17-59); Albumin 2.5 g/dl (3.5-5.0); Alkaline Phosphatase 60 U/L (38-126); Amylase 35 U/L (30-110); Blood Urea Nitrogen 84 mg/dl (9-20); Calcium 7.8 mg/dl (8.4-10.2); Carbon Dioxide 18 mmol/L (22-30); Chloride 107 mmol/L (98-107); Direct Bilirubin 0.5 mg/dl (0.0-0.4); Estimated Creatinine Clearance 18 ml/min; GGTP 44 U/L (15-73); Glucose 111 mg/dl (70-99); LDH 578 U/L (120-246); Lipase 28 U/L (23-300); Potassium 4.7 mmol/L (3.5-5.1); Sodium 135 mmol/L (135-145); Total Bilirubin 1.1 mg/dl (0.2-1.3); Total Protein 4.7 g/dl (6.3-8.2); eGFR 10.02
[2023-05-31 07:00] LABS: ALT (SGPT) 1797 U/L (0-50)
--- NOTE | 2023-05-31 07:20 | W.PN.INTV ---
Today's Communication / Plan
Recommendations
Fentanyl, morphine, Ativan as needed for comfort/respiratory agitation
Await platelets
DNR status
Await withdrawal of care, organ procurement as indicated at request to family
Assessment
-
57-year-old man with history of depression, daily alcohol use, prior suicidal attempt 5 years ago per family found unresponsive in his car. Required emergent intubation. CT head without abnormality. Multiorgan failure noted.
Acute hypercapnic respiratory failure recurrent intubation on the field
ABG 7./
Toxic metabolic encephalopathy: Suspected intentional drug overdose: Xanax/Ambien bottle found
Positive amphetamines/benzos/marijuana
Negative Tylenol and narcotics. Negative cocaine.
Cannot rule out ischemic injury: CT head negative reviewed
Possible aspiration pneumonia
Chest x-ray: Showed left sided infiltrate, reviewed
Moderate left pleural effusion
Non anion gap metabolic acidosis-with increased lactic acid
Lactic acid on admission 4.8
Increased troponin: Non-[place] likely demand ischemia.
Shock: Hypovolemic/possibly septic given aspiration pneumonitis pneumonia
Labile blood pressure, hypertensive
Abnormal LFTs probably shock liver
Acute rhabdomyolysis, CK 14,000
Acute kidney injury possibly ATN
Hyperkalemia
Thrombocytopenia
Assessment and plan:
Remains critically ill, intubated, unresponsive, no meaningful neurological recovery.
Multiorgan failure, acute kidney injury, liver ischemic injury, hypotensive.
Suspect significant anoxic brain injury anoxic brain injury suspected.
CT head 05/29/2023: Consistent with changes from ischemic/anoxic injury.
Does have respiratory effort, equal to pupils
Minimal gag reflex.
Not following commands
Does not withdraw to pain
EEG without seizure activity suggestive of diffuse cortical dysfunction without focal abnormality. 05/28/2023
neurology following, Keppra started.
Family has decided to move forward towards organ donation, comfort, withdrawal of care
Moving forward
Continue with supportive care
Increased work of breathing noted, would start fentanyl as needed, try morphine as needed
Remains on cefepime therapy.
Okay to plan for pre-OR cefazolin. Reviewed with pharmacy
Mechanical ventilation settings reviewed: Continue with current settings
AC /8/80%
ABG 05/31/23: 7.35/34/139
Levophed currently off. Now hypertensive
Blood pressure improved with pain control, sedation
Lactic acid 3.4, suspect mainly type II due to liver dysfunction.
Continue Dave urinary output
Acute transaminitis
Rhabdomyolysis CK 14,000
Continue supportive care, IV fluids
Acute renal injury, ATN
Acute kidney injury possibly ATN
Did not tolerate CRRT yesterday due to clotting
Nephrology following
Unfortunately, worsening renal function, urinary output and hyperkalemia.
Nephrology consulted, case discussed, limited options at this point.
Discussed with Dr. Reed who discussed with family at the bedside, they would not want dialysis per
Hopefully can move bowels
Unable to diurese
May require heparin therapy due to clotting/CRRT.
Thrombocytopenia noted
Await platelets
Head of the bed elevation
NG tube placement-keep n.p.o. for now.
Increase troponin-possible non-UT.
Briefly on heparin drip, discontinue after discussion with cardiology
Echocardiogram: Discussed no regional motion wall abnormalities. Preserved LVEF
No plans for ischemia evaluation at this time
DVT prophylaxis: Sequential teds
Protonix for GI prophylaxis
Dr. Hammond updated family 05/28/2023: Apparently patient has history of depression. Prior suicidal attempt 5 years ago. Drinks alcohol daily. Recently had lost some weight with lifestyle modifications. There is a lot of stress at home. The last
time he was seen well was on Wednesday night.
Discussed with Dr. Reed who discussed with the family, would not want any heroic intervention if patient is not fully recovering from the neurological status. They would not want tracheotomy or feeding tubes. Would not want prolonged
mechanical ventilation.
For now continue supportive care and reevaluate on a daily basis in the next 24 to 48 hours for possible recovery.
DNR status noted
Plans for organ procurement, organ donation at request of family
To OR later today for withdrawal of care, comfort and organ procurement as indicated
Critical care statement: A total of 40 minutes of critical care time was provided for this patient today. This includes management of unstable vital signs, evaluation of the patient at bedside, reviewing the patient's pertinent medical records
including ventilator settings, arterial blood gases, radiographs, microbiology, laboratory evaluations and discussion with primary team, critical care nursing, and respiratory therapy.
Subjective Dataa
Subjective Data
Date of Service:
Date of Service: May 31, 2023
Chief Complaint: Drawer In Jacquard Loom Follow Up (Hypercapnic respiratory failure-drug overdose/suicidal attempt)
Subjective:
Patient remains a critically ill, not requiring pressors but does have episodic hypertension. Spontaneously breathing on assist-control with intermittent volume-cycled breaths. Patient remains unresponsive. Minimal secretions per respiratory care
but increase secretions overnight. Platelets decreased to 50. Awaiting possible organ procurement
Objective Data
Data Reviewed
Vital Signs / I&O / Oxygen:
Vital Signs
Temp Pulse Resp BP Pulse Ox
100.3 F 73 24 151/96 98
05/31/23 02:45 05/31/23 06:00 05/31/23 06:00 05/31/23 04:00 05/31/23 06:00
Intake and Output
05/30/23 05/31/23 06/01/23
06:59 06:59 06:59
Intake Total 3390 / 3490 2160.2 / 2160.2
Output Total 177 / 182 366 / 366
Balance 3213 / 3308 1794.2 / 1794.2
SaO2 [A/C] 94
SaO2 98
Physical Exam
General: Respiratory Distress (At times, respiratory distress noted)
HEENT: Normocephalic, Anicteric and Other (ET tube in place)
Cardiovascular: S1-S2, Regular Rhythm, Murmur (n), Rub (n) and Peripheral Edema (n)
Respiratory: Clear, Wheeze (n), Crackles (n), Rhonchi (Few left side), Accessory Resp Muscle Use (Mild), Stridor (n), Crepitus (n), ET Tube (No secretions or hemoptysis) and Other (Decreased breath sounds left side)
GI: Soft, Non Distended and Non Tender
Neurology: Other (Unresponsive, on mechanical ventilation. Pupils are equal, small and sluggish. Minimal gag reflex. Has respiratory effort. No response to pain)
Skin: Cyanosis (n), Jaundice (n), Other (Upper extremity A-line) and Other (Right IJ HD catheter)
Labs/Micro/Reports
Laboratory Results
05/30/23 05/30/23 05/30/23
12:56 17:44 21:59
PT 19.1 H 18.3 H
INR 1.63 1.53
APTT 31.7 31.1
pH 7.39 7.41 7.39
pCO2 30 L 30 L 31 L
pO2 83 187 H 66 L
HCO3 18.2 L 19.0 L 18.8 L
O2 Delivery Level
05/31/23 05/31/23
01:55 06:10
PT 19.2 H 18.5 H
INR 1.63 1.56
APTT 33.0 37.6 H
pH 7.37
pCO2 35
pO2 120 H
HCO3 20.2 L
O2 Delivery Level
Microbiology
05/28/23 12:35 Blood/Venous Blood Culture - Preliminary
No Growth in 48 hours- Final report to follow
05/28/23 10:04 Blood/Venous Blood Culture - Preliminary
No Growth in 48 hours- Final report to follow
05/28/23 12:39 Nose MRSA Screen - Final
No Methicillin Resistant Staphylococcus aureus isolated.
--- NOTE | 2023-05-31 07:28 | PTCARENOTE ---
Around 0640, CRRT cartridge clotted. Attempted to return blood. Venous access discovered to be clotted off again. Clots able to be removed and access flushed. Patient currently off CRRT. GOL coordinator and day shift RN aware.
[2023-05-31 07:45] LABS: Band Neutrophils 38 % (0-3); Segmented Neutrophils 52 % (42-75)
--- NOTE | 2023-05-31 07:45 | PTCARENOTE ---
Assumed care of patient. Pt rec'd unresponsive....right pupil 1/left pupil 2...both nonreactive. (+) gag noted intermittently w/ suctioning. Pt overbreathing the vent. No movements noted. S1 S2 reg w/ NSR on monitor. Weak PP. +1 generalized
anasarca. Knee hi SCD's on. #7.5 ETT 25cm right lip....current vent settings: 24/550/+8/90%...sats 95%. Lungs diminished especially throughout left chest...scattered coarse rhonchi throughout right chest. Suctioned via ETT for scant jimenez.
Abdomen round...hypo BS. Left nare [place] noted. Dave draining scant pernell urine. Blanchable red sacrum noted...q2h repositioning. Left elbow w/ open blister. RFA skin tear. Right hip hematoma noted. Right radial wes flushed and zeroed.
Multiple peripherals....NSS infusing @ 80ml/hr. RIJ HD cath capped....CRRT on hold due to clotting issues. GOL ok w/ not restarting CRRT for now. Will updated MD's. VS documented. Will continue to monitor closely.
[2023-05-31 07:46] LABS: Atypical Lymphocytes 1 %; Lymphocytes 3 % (20-51); Monocytes 6 % (2-9); Platelets Checked YES
[2023-05-31 07:47] LABS: Normal RBC Morphology Yes; Nucleated Red Blood Cells 1 (-); Total Cells Counted 100
[2023-05-31] MEDS: PROTONIX IV 40 MG IV (07:47)
[2023-05-31] MEDS: MIRALAX TUBE (07:47)
[2023-05-31] MEDS: NSS (PRESERVATIVE FREE) 10 ML IV (07:48)
[2023-05-31 08:00] VITALS: BP 154/101
--- NOTE | 2023-05-31 08:45 | PTCARENOTE ---
Spoke w/ ...discussed plan of care. is aware that CRRT is on hold per MARCO.
--- NOTE | 2023-05-31 08:45 | W.PN.UPDATE ---
Update Note
Progress Note Update
Spoke with bedside nurse
Patient is off CRRT at this time due to significant clotting overnight
spoke with [facility] who said okay to maintain off CRRT at this time until OR at 1PM
[2023-05-31 09:01] LABS: Glycohemoglobin (HgbA1c) 5.2 % (4.0-5.6)
--- NOTE | 2023-05-31 10:28 | CM ---
CM following re: discharge planning.
Discussed in Rounds, reviewed pt's chart, met with pt.
Pt is a 57 year old male, admitted with primary dx of Toxic metabolic encephalopathy secondary to overdose. Ventilatory dependent respiratory failure. Intubated on the field, remains intubated.
Per [facility] team, pt lives with spouse Carlie Hinton [phone] in a 2SH, 2 steps to enter, has 2 supportive sons and a daughter and pt was independent in all areas [employer], drove.
Pt was found unresponsive in his car, suspected intentional drug overdose: Xanax/Ambien bottle found, intubated on the field and was brought to . Per Rounds meeting, pt remains critically ill, intubated, unresponsive, no meaningful neurological
recovery. Multiorgan failure, acute kidney injury, liver ischemic injury, hypotensive.
Pt is an organ donor, GO team following.
D/C plan: comfort care with organ donation. GOC team following.
CM is available for emotional support.
[2023-05-31] MEDS: NSS 1000 IV (10:32)
--- NOTE | 2023-05-31 11:06 | W.PN.HOSP.TC ---
Today's Communication/Plan
-
Patient with anoxic encephalopathy secondary to overdose with multiple organ failure.
DNR.
Ongoing ventilatory support with organ donation evaluation.
Assessment / Plan
Assessment / Plan
IMPRESSION:
Toxic metabolic encephalopathy secondary to overdose.
Ventilatory dependent respiratory failure
-Intubated on the field on
Concern for anoxic encephalopathy
Intentional overdose suspected benzodiazepines.
Severe shock with hypotension. Multifactorial secondary to hypovolemia and sepsis.
Nonischemic cardiac injury.
Shock liver
Acute kidney injury
Hypothermia
Respiratory acidosis.
Lactic acidosis.
Aspiration pneumonia with bilateral infiltrates
Sepsis secondary to aspiration pneumonia
Suspected benzodiazepine abuse/dependence
Conditions prior to admission:
Depression with prior history of suicidal attempt
Essential hypertension
Insomnia
Obesity with reported weight loss due to lifestyle modification
PLAN:
Critically ill.
Admitted to intensive care unit.
Toxic metabolic encephalopathy secondary to overdose.
Urine drug screen positive for benzodiazepines, amphetamines, marijuana. Serum Tylenol and salicylate level undetectable.
Unknown time of exposure.
On arrival to emergency room unresponsive while off any sedative medications after given ketamine for intubation in the field.
CT scan of the head with no evidence of cerebral edema on presentation.
Neurologic exam with weak cough, no corneal reflexes. Spontaneous respirations while on the vent
Continue close neurologic monitoring.
Wean off fentanyl and monitor for neurologic recovery
EEG nondiagnostic
Repeat CT scan of the head 05/28:Round 9 mm symmetric low attenuation lesions in the GLOBUS PALLIDUS BILATERALLY consistent with ANOXIC-ISCHEMIC ENCEPHALOPATHY. Diagnostic possibilities are (1) an ACUTE TOXIC ENCEPHALOPATHY (drug abuse) or (2) carbon
monoxide poisoning.
Neurology consultation appreciated
Ventilatory dependent respiratory failure secondary to overdose.
ABG consistent with respiratory acidosis with limited metabolic compensation
Continue assist-control ventilation
As needed sedation as per respiratory therapy manager.
Follow-up ABG
Severe shock multifactorial due to hypovolemia, sedatives, suspect sepsis with aspiration pneumonia.
Received IV bolus of isotonic solution and remains hypotensive.
Continue isotonic solution
Continue Levophed with titration to MAP 55-60.
Acute kidney injury.
Metabolic/lactic acidosis.
Hyperkalemia
Dave catheter in place.
Creatinine continue to rise with minimal urine output
IV fluids with addition of bicarb for maintenance.
Follow temporize potassium level.
Nephrology consultation.
Aspiration pneumonia
Chest x-ray with bilateral left greater than right infiltrates.
Blood cultures pending.
Broad-spectrum antibiotics: Vancomycin/cefepime pending sputum and blood cultures.
Adjust dose according to renal function
Nonischemic cardiac injury
Troponin peak at 12
Echocardiogram with preserved biventricular function and no evidence of regional wall motion abnormalities
ECG with no ischemic changes
Cardiology input appreciated
Goals of care discussion with patient's family at the bedside. They understand significance of current situation in patient with clinical as well as radiologic signs of anoxic brain injury and multiorgan failure not limited to JESENIA with oliguria.
According to patient and family wishes, they would not pursue any aggressive means of life support including hemodialysis. They would like to continue further close monitoring to complete 72 hours of support and reassessment for possible neurologic
recovery.
They wish patient's CODE STATUS to be changed to DNR.
DVT prophylaxis/heparin
DNR
Total Critical Care Time__60__ minutes. I was immediately available to the patient and staff. I personally examined, reviewed labs, diagnostic images/reports, interpretations, treatment plans, discussed patient care with other providers and
family or caregivers (if patient is unable to make decisions), entered orders as appropriate and documented the medical record.
Anticipated Discharge: 24 - 48 hours
Subjective/Interval History
-
Date of Service: May 31, 2023
Objective Data
-
Labs:
Laboratory Results
05/31/23 05/31/23 05/31/23
01:55 04:00 06:00
WBC 8.3 Cancelled
Hgb 13.6 Cancelled
Hct 38.5 L Cancelled
Plt Count 73 L Cancelled
PT 19.2 H
INR 1.63
APTT 33.0
HCO3 20.2 L
Sodium 135 Pending
Potassium 4.7 Pending
Chloride 108 H Pending
Carbon Dioxide 17 L Pending
BUN 89 H Pending
Creatinine 6.7 H* Pending
Glucose 113 H Pending
Calcium 7.5 L Pending
Total Bilirubin 0.9 Pending
AST 706 H* Pending
ALT 1843 H* Pending
Alkaline Phosphatase 53 Pending
05/31/23 05/31/23 05/31/23
06:10 06:11 08:00
WBC 7.8 Pending
Hgb 14.2 Pending
Hct 40.3 Pending
Plt Count 50 L D Pending
PT 18.5 H Pending
INR 1.56 Pending
APTT 37.6 H Pending
HCO3 18.8 L Pending
Sodium 135 Pending
Potassium 4.7 Pending
Chloride 107 Pending
Carbon Dioxide 18 L Pending
BUN 84 H Pending
Creatinine 6.1 H* Pending
Glucose 111 H Pending
Calcium 7.8 L Pending
Total Bilirubin 1.1 Pending
AST 594 H* Pending
ALT 1797 H* Pending
Alkaline Phosphatase 60 Pending
05/31/23 05/31/23 05/31/23
12:00 16:00 20:00
WBC Pending Pending Pending
Hgb Pending Pending Pending
Hct Pending Pending Pending
Plt Count Pending Pending Pending
PT Pending Pending Pending
INR Pending Pending Pending
APTT Pending Pending Pending
HCO3 Pending Pending Pending
Sodium Pending Pending Pending
Potassium Pending Pending Pending
Chloride Pending Pending Pending
Carbon Dioxide Pending Pending Pending
BUN Pending Pending Pending
Creatinine Pending Pending Pending
Glucose Pending Pending Pending
Calcium Pending Pending Pending
Total Bilirubin Pending Pending Pending
AST Pending Pending Pending
ALT Pending Pending Pending
Alkaline Phosphatase Pending Pending Pending
Vital Signs:
Vital Signs
Temp Pulse Resp BP Pulse Ox
100.3 F 86 29 154/101 94
05/31/23 11:02 05/31/23 09:45 05/31/23 09:45 05/31/23 08:00 05/31/23 09:45
I&O
05/30/23 05/31/23 06/01/23
06:59 06:59 06:59
Intake Total 3390 / 3490 2160.2 / 2240.2 270 / 270
Output Total 177 / 182 366 / 371 15 / 15
Balance 3213 / 3308 1794.2 / 1869.2 255 / 255
Physical Exam
-
General: Well Developed and No Apparent Distress
HEENT: Normocephalic, Atraumatic and Moist Mucous Membranes
Respiratory: Clear to Auscultation
Cardiac: Regular Rhythm and S1/S2; Negative Murmur, Rub or Gallop
GI: Soft, Nontender, Nondistended and Normal Bowel Sounds; Negative Organomegaly
Rectal: Deferred by Provider
Musculoskeletal: No Clubbing, No Cyanosis and No Edema
Skin: Negative Rash
Neuro: Other (No spontaneous movements. Occasional spontaneous respirations.)
[2023-05-31] MEDS: SUBLIMAZE 100 MCG IV (11:40)
[2023-05-31 12:00] VITALS: BP 175/108
--- NOTE | 2023-05-31 12:00 | PTCARENOTE ---
Pt remains intubated....multiple labs sent per MD orders and GOL request. Skin evaluated by MARCO. Pt hypertensive and tachypneic after repositioning. Orthopnea noted. made aware. PRN meds given. Will continue to monitor.
[2023-05-31 12:10] LABS: B.E. -6.1 mmol/L; HCO3 18.9 mmol/L (21-28); O2 Saturation % 98.6 % (94-98); PCO2 35 mmHg (35-48); PO2 127 mmHg (83-108); pH 7.34 (7.35-7.45)
[2023-05-31 12:12] LABS: Urine Albumin 2+ (Neg - Trace); Urine Bilirubin 1+ (Negative); Urine Character Clear (Clear); Urine Color Amber; Urine Glucose 1+ (Negative); Urine Ketone 1+ (Negative); Urine Leukocyte 1+ (Negative); Urine Nitrite Negative (Negative); Urine Occult Blood 4+ (Negative); Urine Urobilinogen Negative (Neg - 1+)
[2023-05-31 12:15] LABS: Hematocrit 42.1 % (39.0-52.0); Hemoglobin 14.4 g/dL (13.0-18.0); Mean Corp Hgb Conc. 34.2 g/dL (33.0-37.0); Mean Corpuscular Hgb 32.4 pg (27.0-31.0); Mean Corpuscular Volume 94.6 fL (80.0-94.0); Mean Platelet Volume 11.8 fL (7.4-10.4); Platelet Count 62 10^3/uL (130-400); Red Blood Cell Count 4.45 10^6/uL (4.70-6.10); Red Cell Dist. Width 12.9 % (11.5-14.5)
[2023-05-31 12:21] LABS: Urine Squamous Cell 0-2 /LPF (Few)
[2023-05-31 12:22] LABS: Urine Bacteria Moderate (Negative)
[2023-05-31] MEDS: MORPHINE SULFATE 2 MG IV (12:23)
[2023-05-31 12:24] LABS: INR 1.62; PT 19.1 Sec (11.4-14.6)
[2023-05-31 12:25] LABS: APTT 35.2 Sec (23.4-35.0)
[2023-05-31 12:30] LABS: AST (SGOT) 428 U/L (17-59); Albumin 2.6 g/dl (3.5-5.0); Alkaline Phosphatase 56 U/L (38-126); Blood Urea Nitrogen 91 mg/dl (9-20); Carbon Dioxide 18 mmol/L (22-30); Chloride 104 mmol/L (98-107); Direct Bilirubin 0.6 mg/dl (0.0-0.4); Estimated Creatinine Clearance 16 ml/min; Glucose 112 mg/dl (70-99); Sodium 137 mmol/L (135-145); Total Bilirubin 1.1 mg/dl (0.2-1.3); Total Protein 4.8 g/dl (6.3-8.2)
[2023-05-31 12:39] LABS: ALT (SGPT) 1581 U/L (0-50)
[2023-05-31 12:50] LABS: Amylase 36 U/L (30-110); GGTP 43 U/L (15-73); LDH 562 U/L (120-246); Lipase 27 U/L (23-300); Potassium 4.8 mmol/L (3.5-5.1)
[2023-05-31 13:01] LABS: Absolute Neutrophils -Man Diff 6.8 10^3/uL (1.4-6.5); Band Neutrophils 15 % (0-3); Lymphocytes 8 % (20-51); Monocytes 7 % (2-9); Normal RBC Morphology Yes; Platelets Checked Yes; Segmented Neutrophils 70 % (42-75); Total Cells Counted 100
[2023-05-31] MEDS: DILAUDID 1 MG IV ×3 (13:21→16:23)
[2023-05-31 13:55] LABS: Magnesium 1.7 mg/dl (1.6-2.3); Phosphorus 6.5 mg/dl (2.5-4.5)
--- NOTE | 2023-05-31 15:35 | W.PN.DEATH ---
Pronouncement of
-
Called to see patient to pronounce.
No spontaneous heart tones or respirations noted.
Patient not responsive to verbal stimuli.
Patient is pronounced .
Time of : 16:47
Date of : 05/31/23
Cause of : Multiple organ failure secondary to overdose.
Family Notified: Yes
[2023-05-31 16:00] VITALS: BP 194/104
[2023-05-31] MEDS: HEPARIN 30000 UNITS IV (16:03)
--- NOTE | 2023-05-31 16:03 | W.PN.NEPH.PH ---
Today's Communication / Plan
-
- CRRT clotted, not able to restart due to inability to heparinize
- organ donation ongoing currently
Assessment/Plan
-
IMP:
JESENIA
Non gap metabolic acidosis
hyperkalemia
Toxic metabolic encephalopathy secondary to overdose.
Ventilatory dependent respiratory failure
Concern for anoxic encephalopathy
Intentional overdose suspected benzodiazepines.
Severe shock with hypotension
Nonischemic cardiac injury.
Shock liver
Hypothermia
Respiratory acidosis on admit
Lactic acidosis.
Aspiration pneumonia with bilateral infiltrates
Sepsis secondary to aspiration pneumonia
Thrombocytopenia
Suspected benzodiazepine abuse/dependence
Depression with prior history of suicidal attempt
Essential hypertension
Insomnia
Obesity with reported weight loss due to lifestyle modification
Plan:
A/w found unresponsive in car, OD
anoxic encephalopathy 2/2 to overdose with multiorgan failure
JESENIA-suspect ischemic ATN, bland UA, minimal UOP with goodrich
initiated on CRRT for gift of life organ donation
CRRT clotted, but held off on restarting per GOL
patient in OR for organ donation currently
d/w nursing
CC time spent 32min
-
-
Date of Service: May 31, 2023
CC / HPI / ROS
-
Chief Complaint:
JESENIA
History of Present Illness:
anoxic sydnee injury
organ donation
CRRT started per gift of life preference
Review of Systems:
non responsive
Labs
-
Labs:
eGFR 8.50 05/31/23 11:55
Phosphorus Cancelled 05/31/23 08:40
Physical Exam
-
Vital Signs:
Vital Signs
Temp Pulse Resp BP Pulse Ox
100.3 F 97 29 175/108 93
05/31/23 11:02 05/31/23 13:15 05/31/23 13:15 05/31/23 12:00 05/31/23 13:15
Cardiovascular:: Regular rate and rhythm
Respiratory:: Bilateral: Coarse
Lung Excursion:: Abnormal
Abdomen:: Distended
Bowel Sounds:: Decreased
Extremity Edema:: +3: Bilateral:
Goodrich Catheter: Yes
[2023-05-31] MEDS: ATIVAN 1 MG IV ×2 (16:10→16:30)
--- NOTE | 2023-05-31 17:14 | W.PN.UPDATE ---
Addendum entered and electronically signed by Abril Ortiz MD 05/31/23 17:19:
Below procedure/update note entered on wrong patient. Please disregard
Original Note:
Update Note
Progress Note Update
Bronchoscopy note
Indications: Right lower lobe lung mass
Informed consent: Obtained by phone, spoke with sister/power of management nurse rn
Findings: Bronchoscope was advanced via ET tube. 3 cc of 2% lidocaine administered to the annabella, and right mainstem. Significant thick secretions noted throughout the trachea and predominant coming from the right mainstem, right lower lobe. This
was cleared and suction. No obvious endobronchial abnormality. Superior segment of right lower lobe was identified, BAL completed. This was serosanguineous at first but then became bloody. Airway was cleared. Samples were sent for cytology,
fungal, bacterial, AFB. [place] was advanced to the right lower lobe superior segment, sample sent for cytology analysis.
Patient tolerated procedure well.
Will call sister to update later p.m.
--- NOTE | 2023-05-31 17:15 | PTCARENOTE ---
Taken to OR at 1535. Prepped by OR at 1540. 30,000 units of heparin IV given @ 1603. Family at bedside @ 1610. Pt extubated and rama escuderoken removed @ 1613. Dilaudid and ativan given IV prn for comfort...see APR. 1620 rapid afib noted on
monitor. 1642 -> pt agonal and hypotensive. Pt pronounced at 1647. Surgeon at bedside for organ procurement. Meds documented in APR and unused meds returned or appropriately wasted.
== END 2023-05-31 16:47 | disposition expired | DRG 871 ==
LOC: ICU 12:10
PROVIDERS: Internal Medicine Critical Care Medicine; Nurse Practitioner Family; Nurse Practitioner Primary Care; Radiology Vascular & Interventional Radiology; ADMITTING PHYSICIAN Internal Medicine; CONSULT PHYSICIAN Internal Medicine; CONSULT PHYSICIAN Internal Medicine Cardiovascular Disease; CONSULT PHYSICIAN Internal Medicine Critical Care Medicine; CONSULT PHYSICIAN Psychiatry & Neurology Neurology; EMERGENCY PHYSICIAN Student in an Organized Health Care Education/Training Program
PROC: 0BH17EZ Insertion of Endotracheal Airway into Trachea, Via Natural or Artificial Opening (ICD-10-PCS; 2023-05-28)
PROC: 5A1945Z Respiratory Ventilation, 24-96 Consecutive Hours (ICD-10-PCS; 2023-05-28)
PROC: 05HM33Z Insertion of Infusion Device into Right Internal Jugular Vein, Percutaneous Approach (ICD-10-PCS; 2023-05-30)
DX: A41.9 Sepsis, unspecified organism (principal); G92.8 Other toxic encephalopathy; J96.02 Acute respiratory failure with hypercapnia; K72.00 Acute and subacute hepatic failure without coma; J69.0 Pneumonitis due to inhalation of food and vomit; N17.0 Acute kidney failure with tubular necrosis; G93.1 Anoxic brain damage, not elsewhere classified; N17.9 Acute kidney failure, unspecified; M62.82 Rhabdomyolysis; E87.29 Other acidosis; T42.4X2A Poisoning by benzodiazepines, intentional self-harm, initial encounter; E87.5 Hyperkalemia; R57.1 Hypovolemic shock; F32.9 Major depressive disorder, single episode, unspecified; E66.9 Obesity, unspecified; Z68.31 Body mass index [BMI] 31.0-31.9, adult; Z91.51 Personal history of suicidal behavior
CPT/HCPCS: 93308; 36556; 36600; 70450; 71045; 76937; 80048; 80053; 80143; 80179; 80202; 80306; 80307; 81003; 81015; 82140; 82150; 82248; 82550; 82805; 82962; 82977; 83036; 83605; 83615; 83690; 83735; 84100; 84443; 84484; 85025; 85027; 85610; 85730; 86850; 86900; 86901; 87040; 87070; 87086; 87811; 93005; 93321; 93325; 94002; 94003; 95816; 96374; 96375; 99291; A4648; C1750; J2997